=== PATIENT | male | born 1955 | race Caucasian/White ===

== ENCOUNTER 2017-11-16 22:08 | Inpatient (IN) | payer MEDICAID, OTHER ==
[2017-11-16 22:47] LABS: ADD MAN DIFF? NO
[2017-11-16 22:52] LABS: ABNORMAL IP MESSAGE 1; BASOPHILS % 0.2 % (0.0-2.0); HEMATOCRIT 38.4 % (42.0-52.0); HEMOGLOBIN 13.1 g/dl (14.0-18.0); LYMPHOCYTES # 1.3 10^3/ul (0.8-2.9); LYMPHOCYTES % 7.2 % (15.0-51.0); MEAN CORPUSCULAR HEMOGLOBIN 29.1 pg (29.0-33.0); MEAN CORPUSCULAR HGB CONC 34.1 g/dl (32.0-37.0); MEAN CORPUSCULAR VOLUME 85.3 fl (82.0-101.0); MEAN PLATELET VOLUME 10.2 fl (7.4-10.4); MONOCYTE # 1.7 10^3/ul (0.3-0.9); MONOCYTES % 9.5 % (0.0-11.0); NEUTROPHIL # 14.6 10^3/ul (1.6-7.5); NEUTROPHILS % 81.6 % (39.0-77.0); PLATELET COUNT 325 10^3/UL (140-415); POSITIVE DIFF @See below; RED CELL DISTRIBUTION WIDTH 11.4 % (11.5-14.5)
[2017-11-16 22:52] LABS: WHITE BLOOD COUNT 17.9 10^3/ul (4.8-10.8)
[2017-11-16] MEDS: SODIUM CHLORIDE 0.9% 1L BAG IV* (23:08)
[2017-11-16] MEDS: SOD CHLORIDE 0.9% 500 ML IV (23:08)
[2017-11-16 23:11] LABS: INR 1.15; PROTIME 14.9 Sec (11.9-14.9); PT RATIO 1.2
[2017-11-16 23:12] LABS: PARTIAL THROMBOPLASTIN TIME 32.2 Sec (25.0-35.0)
[2017-11-16 23:17] LABS: ALANINE AMINOTRANSFERASE 38 IU/L (13-69); ALBUMIN 3.2 g/dl (3.3-4.9); ALKALINE PHOSPHATASE 154 IU/L (42-121); ANION GAP 17 (8-16); ASPARTATE AMINO TRANSFERASE 25 IU/L (15-46); BILIRUBIN,INDIRECT 0.6 mg/dl (0-1.1); BILIRUBIN,TOTAL 0.6 mg/dl (0.2-1.3); BLOOD UREA NITROGEN 10 mg/dl (7-20); CALCIUM 8.7 mg/dl (8.4-10.2); CARBON DIOXIDE 29 mmol/L (21-31); CHLORIDE 92 mmol/L (97-110); CREATININE 0.61 mg/dl (0.61-1.24); GLUCOSE 315 mg/dl (70-220); POTASSIUM 3.8 mmol/L (3.5-5.1); SODIUM 134 mmol/L (135-144); TOTAL PROTEIN 6.4 g/dl (6.1-8.1)
[2017-11-16 23:19] LABS: LIPASE < 10 U/L (23-300)
[2017-11-16 23:25] LABS: LACTIC ACID 1.5 mmol/L (0.5-2.0)
[2017-11-16 23:28] LABS: TROPONIN-I < 0.010 ng/ml (0.000-0.120)
[2017-11-17] MEDS: PIPER-TAZO 3.375 GM IV (PMX) 100 ML IVPB ×4 (00:59→17:11)
[2017-11-17 01:06] LABS: LACTIC ACID 1.2 mmol/L (0.5-2.0)
[2017-11-17] MEDS ORDERED: COLLAGENASE 5 GM (UD JAR) TOP (02:03)
[2017-11-17] MEDS: VANCOMYCIN 1 GM (PMX) 250 ML IVPB (02:42)
[2017-11-17 04:06] LABS: LACTIC ACID 1.1 mmol/L (0.5-2.0)
[2017-11-17] MEDS ORDERED: PENDING SANTYL ORDER FOR WOUND CARE XX (04:30)
[2017-11-17] MEDS ORDERED: VANCOMYCIN IV PER PHARMACY XX (04:30)
[2017-11-17] MEDS ORDERED: morphine 2 MG INJ IV (04:30)
[2017-11-17] MEDS ORDERED: HYDROCODONE/APAP (5/325) TAB PO (04:30)
[2017-11-17 05:31] LABS: ADD MAN DIFF? NO
[2017-11-17 05:37] LABS: ABNORMAL IP MESSAGE 1; BASOPHILS % 0.2 % (0.0-2.0); HEMATOCRIT 33.3 % (42.0-52.0); HEMOGLOBIN 11.3 g/dl (14.0-18.0); LYMPHOCYTES # 1.1 10^3/ul (0.8-2.9); LYMPHOCYTES % 5.8 % (15.0-51.0); MEAN CORPUSCULAR HEMOGLOBIN 28.6 pg (29.0-33.0); MEAN CORPUSCULAR HGB CONC 33.9 g/dl (32.0-37.0); MEAN CORPUSCULAR VOLUME 84.3 fl (82.0-101.0); MEAN PLATELET VOLUME 10.4 fl (7.4-10.4); MONOCYTE # 1.8 10^3/ul (0.3-0.9); MONOCYTES % 9.4 % (0.0-11.0); NEUTROPHIL # 15.7 10^3/ul (1.6-7.5); NEUTROPHILS % 83.4 % (39.0-77.0); PLATELET COUNT 279 10^3/UL (140-415); POSITIVE DIFF @See below; RED BLOOD COUNT 3.95 10^6/ul (4.70-6.10); RED CELL DISTRIBUTION WIDTH 11.8 % (11.5-14.5)
[2017-11-17 05:37] LABS: WHITE BLOOD COUNT 18.8 10^3/ul (4.8-10.8)
[2017-11-17] MEDS: COLLAGENASE 5 GM (UD JAR) TOP ×2 (06:02→08:37)
[2017-11-17 06:07] LABS: ANION GAP 12 (8-16); BLOOD UREA NITROGEN 9 mg/dl (7-20); CALCIUM 7.9 mg/dl (8.4-10.2); CARBON DIOXIDE 27 mmol/L (21-31); CHLORIDE 100 mmol/L (97-110); CREATININE 0.53 mg/dl (0.61-1.24); GLUCOSE 277 mg/dl (70-220); MAGNESIUM 1.9 mg/dl (1.7-2.5); POTASSIUM 3.3 mmol/L (3.5-5.1); SODIUM 136 mmol/L (135-144)
[2017-11-17] MEDS ORDERED: DEXTROSE 50% 50 ML SYRINGE IV ×2 (07:00)
[2017-11-17] MEDS ORDERED: GLUCAGON 1 MG INJ IM (07:00)
[2017-11-17] MEDS ORDERED: GLUCOSE GEL 15 GRAM TUBE BUCCAL (07:00)
[2017-11-17] MEDS ORDERED: GLUCOSE GEL 15 GRAM TUBE PO ×2 (07:00)
[2017-11-17] MEDS: POTASSIUM CHLORIDE (SR) 20 MEQ TAB PO (08:08)
[2017-11-17] MEDS: INSULIN ASPART [NOVOLOG] 3 ML PEN SC ×7 (08:33→20:55)
[2017-11-17] MEDS: INSULIN GLARGINE [LANtus] 3 ML PEN SC (08:35)
[2017-11-17] MEDS: HEPARIN 5,000 UNIT/0.5 ML VIAL SC ×2 (08:36→20:55)
[2017-11-17 10:00] LABS: CHOL/HDL RATIO 4.5 RATIO; HDL CHOLESTEROL 20 mg/dl (30-78); LDL CHOLESTEROL,CALCULATED 59 mg/dl; TRIGLYCERIDES 60 mg/dl (0-149)
[2017-11-17 10:00] LABS: CHOLESTEROL 91 mg/dl (100-200)
[2017-11-17] MEDS: VANCOMYCIN 1.25 GM in SOD CHLORIDE 0.9% 250 ML IVPB ×2 (10:07→20:55)
[2017-11-17] MEDS: POLYETHYLENE GLYCOL 17 GM PACKET PO ×2 (11:00→20:56)
[2017-11-17] MEDS ORDERED: BISACODYL (EC) 5 MG TAB PO (11:00)
[2017-11-17 12:00] LABS: C-REACTIVE PROTEIN 37.8 mg/dl (0.0-0.9)
[2017-11-17] MEDS ORDERED: LIDOCAINE 1% (MPF) 30 ML INJ INJ (16:30)
[2017-11-17] MEDS: ACETAMINOPHEN 325 MG TAB PO (19:51)
[2017-11-17] MEDS: SODIUM HYPOCHLORITE (1/40) 1 APPLIC BTL IRR (20:53)
[2017-11-18] MEDS: PIPER-TAZO 3.375 GM IV (PMX) 100 ML IVPB ×4 (00:22→18:40)
[2017-11-18] MEDS: ACCU-CHEK XX (00:24)
[2017-11-18 05:33] LABS: ADD MAN DIFF? NO
[2017-11-18 05:37] LABS: BASOPHILS % 0.2 % (0.0-2.0); EOSINOPHILS % 0.1 % (0.0-7.0); HEMATOCRIT 35.8 % (42.0-52.0); HEMOGLOBIN 12.1 g/dl (14.0-18.0); LYMPHOCYTES # 1.5 10^3/ul (0.8-2.9); LYMPHOCYTES % 7.9 % (15.0-51.0); MEAN CORPUSCULAR HEMOGLOBIN 28.8 pg (29.0-33.0); MEAN CORPUSCULAR HGB CONC 33.8 g/dl (32.0-37.0); MEAN CORPUSCULAR VOLUME 85.2 fl (82.0-101.0); MEAN PLATELET VOLUME 10.3 fl (7.4-10.4); MONOCYTE # 1.3 10^3/ul (0.3-0.9); MONOCYTES % 6.9 % (0.0-11.0); NEUTROPHIL # 15.6 10^3/ul (1.6-7.5); NEUTROPHILS % 83.1 % (39.0-77.0); PLATELET COUNT 312 10^3/UL (140-415); RED CELL DISTRIBUTION WIDTH 11.9 % (11.5-14.5)
[2017-11-18 05:37] LABS: WHITE BLOOD COUNT 18.8 10^3/ul (4.8-10.8)
[2017-11-18 05:57] LABS: PHOSPHORUS 3.6 mg/dl (2.5-4.9)
[2017-11-18 05:58] LABS: ANION GAP 16 (8-16); BLOOD UREA NITROGEN 14 mg/dl (7-20); CALCIUM 8.2 mg/dl (8.4-10.2); CARBON DIOXIDE 26 mmol/L (21-31); CHLORIDE 100 mmol/L (97-110); GLUCOSE 152 mg/dl (70-220); POTASSIUM 4.1 mmol/L (3.5-5.1); SODIUM 138 mmol/L (135-144)
[2017-11-18] MEDS: INSULIN GLARGINE [LANtus] 3 ML PEN SC (08:11)
[2017-11-18] MEDS: INSULIN ASPART [NOVOLOG] 3 ML PEN SC ×6 (08:15→21:00)
[2017-11-18] MEDS: SODIUM HYPOCHLORITE (1/40) 1 APPLIC BTL IRR ×2 (08:23→21:57)
[2017-11-18] MEDS: HEPARIN 5,000 UNIT/0.5 ML VIAL SC ×2 (08:23→21:56)
[2017-11-18] MEDS: POLYETHYLENE GLYCOL 17 GM PACKET PO ×2 (08:23→21:57)
[2017-11-18] MEDS: COLLAGENASE 5 GM (UD JAR) TOP (08:23)
[2017-11-18] MEDS: VANCOMYCIN 1.25 GM in SOD CHLORIDE 0.9% 250 ML IVPB ×2 (11:48→22:23)
[2017-11-18] MEDS: SOD CHLORIDE 0.9% 1,000 ML IV (13:19)
[2017-11-18] MEDS ORDERED: PROPOFOL 20 ML (16:22)
[2017-11-18] MEDS ORDERED: ONDANSETRON 4 MG INJ (16:23)
[2017-11-18] MEDS ORDERED: MIDAZOLAM 1 MG/ML 2 ML INJ IV (16:30)
[2017-11-18] MEDS ORDERED: OXYCODONE/ACETAMINOPHEN (5/325) TAB PO ×2 (16:30)
[2017-11-18] MEDS ORDERED: ONDANSETRON 4 MG INJ IV ×2 (16:30→17:30)
[2017-11-18] MEDS ORDERED: HYDROmorphONE 1 MG/5 ML IV SYRINGE IV ×2 (16:30)
[2017-11-18] MEDS ORDERED: ALBUTEROL 0.083% (NEB) 2.5 MG/3 ML AMP HHN (16:30)
[2017-11-18] MEDS ORDERED: IPRATROPIUM (NEB) 0.5 MG/2.5 ML AMP HHN (16:30)
[2017-11-18] MEDS ORDERED: FENTAnyl 50 MCG/ML VIAL IV ×3 (16:30)
[2017-11-18] MEDS ORDERED: MEPERIDINE 25 MG INJ IV (16:30)
[2017-11-18] MEDS ORDERED: EPHEDrine SULFATE 50 MG/5 ML SYG IV (16:30)
[2017-11-18] MEDS ORDERED: DIPHENHYDRAMINE 50 MG INJ IV ×2 (16:30→17:30)
[2017-11-18] MEDS ORDERED: hydrALAzine 20 MG INJ IV (16:30)
[2017-11-18] MEDS ORDERED: TRIMETHOBENZAMIDE 100 MG/ML VIAL IM (16:30)
[2017-11-18] MEDS ORDERED: LABETALOL HCL 20MG INJ IV (16:30)
[2017-11-18] MEDS: LIDOCAINE 1% (MPF) 30 ML INJ (16:42)
[2017-11-18] MEDS: POLYMYXIN/BACITRACIN 1L IRRIG (16:43)
[2017-11-18] MEDS ORDERED: KETOROLAC 30 MG INJ IV (17:30)
[2017-11-18] MEDS: HYDROmorphONE 1 MG/5 ML IV SYRINGE IV (17:36)
[2017-11-18 21:19] LABS: VANCOMYCIN,TROUGH 5.9 ug/ml (10.0-20.0)
[2017-11-19] MEDS: PIPER-TAZO 3.375 GM IV (PMX) 100 ML IVPB ×2 (00:28→05:58)
[2017-11-19] MEDS: ACCU-CHEK XX (02:00)
[2017-11-19 05:51] LABS: ADD MAN DIFF? NO
[2017-11-19 05:55] LABS: WHITE BLOOD COUNT 17.9 10^3/ul (4.8-10.8)
[2017-11-19 05:55] LABS: BASOPHILS % 0.2 % (0.0-2.0); EOSINOPHILS # 0.1 10^3/ul (0.0-0.5); EOSINOPHILS % 0.3 % (0.0-7.0); HEMATOCRIT 34.4 % (42.0-52.0); HEMOGLOBIN 11.6 g/dl (14.0-18.0); LYMPHOCYTES # 1.7 10^3/ul (0.8-2.9); LYMPHOCYTES % 9.5 % (15.0-51.0); MEAN CORPUSCULAR HEMOGLOBIN 28.7 pg (29.0-33.0); MEAN CORPUSCULAR HGB CONC 33.7 g/dl (32.0-37.0); MEAN CORPUSCULAR VOLUME 85.1 fl (82.0-101.0); MEAN PLATELET VOLUME 9.8 fl (7.4-10.4); MONOCYTES % 5.5 % (0.0-11.0); NEUTROPHIL # 14.4 10^3/ul (1.6-7.5); NEUTROPHILS % 80.4 % (39.0-77.0); PLATELET COUNT 339 10^3/UL (140-415); RED BLOOD COUNT 4.04 10^6/ul (4.70-6.10); RED CELL DISTRIBUTION WIDTH 11.9 % (11.5-14.5)
[2017-11-19] MEDS: PANTOPRAZOLE 40 MG INJ IV (05:56)
[2017-11-19] MEDS: HYDROCODONE/APAP (5/325) TAB PO (05:56)
[2017-11-19 06:22] LABS: ANION GAP 10 (8-16)
[2017-11-19 06:35] LABS: PHOSPHORUS 3.5 mg/dl (2.5-4.9)
[2017-11-19] MEDS: VANCOMYCIN 1 GM 250 ML IVPB ×3 (06:48→22:48)
[2017-11-19 07:09] LABS: BLOOD UREA NITROGEN 9 mg/dl (7-20); CALCIUM 7.7 mg/dl (8.4-10.2); CARBON DIOXIDE 28 mmol/L (21-31); CHLORIDE 102 mmol/L (97-110); CREATININE 0.65 mg/dl (0.61-1.24); GLUCOSE 160 mg/dl (70-220); POTASSIUM 3.4 mmol/L (3.5-5.1); SODIUM 137 mmol/L (135-144)
[2017-11-19] MEDS: INSULIN ASPART [NOVOLOG] 3 ML PEN SC ×7 (08:02→21:00)
[2017-11-19] MEDS: INSULIN GLARGINE [LANtus] 3 ML PEN SC (08:04)
[2017-11-19] MEDS: POLYETHYLENE GLYCOL 17 GM PACKET PO ×2 (08:05→21:00)
[2017-11-19] MEDS: SODIUM HYPOCHLORITE (1/40) 1 APPLIC BTL IRR ×2 (08:06→22:54)
[2017-11-19] MEDS: HEPARIN 5,000 UNIT/0.5 ML VIAL SC ×2 (08:08→22:52)
[2017-11-19] MEDS: COLLAGENASE 5 GM (UD JAR) TOP (08:14)
[2017-11-19] MEDS: CEFTRIAXONE 1 GM/50 ML (PMX) 50 ML IVPB (14:49)
[2017-11-19] MEDS: POTASSIUM CHLORIDE (SR) 20 MEQ TAB PO (14:49)
[2017-11-19] MEDS: FLUCONAZOLE 100 MG TAB PO (14:52)
[2017-11-19] MEDS ORDERED: morphine LIQ (10 MG/5 ML) CUP PO (22:00)
[2017-11-20] MEDS: ACCU-CHEK XX (02:00)
[2017-11-20] MEDS: VANCOMYCIN 1 GM 250 ML IVPB ×3 (06:15→15:00)
[2017-11-20] MEDS: PANTOPRAZOLE 40 MG INJ IV (06:15)
[2017-11-20 08:04] LABS: ADD MAN DIFF? NO
[2017-11-20 08:08] LABS: BASOPHILS % 0.3 % (0.0-2.0); EOSINOPHILS # 0.1 10^3/ul (0.0-0.5); EOSINOPHILS % 0.6 % (0.0-7.0); HEMOGLOBIN 12.4 g/dl (14.0-18.0); LYMPHOCYTES # 1.7 10^3/ul (0.8-2.9); LYMPHOCYTES % 11.7 % (15.0-51.0); MEAN CORPUSCULAR HGB CONC 33.5 g/dl (32.0-37.0); MEAN CORPUSCULAR VOLUME 86.4 fl (82.0-101.0); MEAN PLATELET VOLUME 9.9 fl (7.4-10.4); MONOCYTE # 0.8 10^3/ul (0.3-0.9); NEUTROPHIL # 11.1 10^3/ul (1.6-7.5); NEUTROPHILS % 79.1 % (39.0-77.0); PLATELET COUNT 370 10^3/UL (140-415); RED BLOOD COUNT 4.28 10^6/ul (4.70-6.10); RED CELL DISTRIBUTION WIDTH 11.7 % (11.5-14.5)
[2017-11-20 08:08] LABS: WHITE BLOOD COUNT 14.1 10^3/ul (4.8-10.8)
[2017-11-20 08:29] LABS: ANION GAP 15 (8-16); BLOOD UREA NITROGEN 7 mg/dl (7-20); CALCIUM 8.1 mg/dl (8.4-10.2); CARBON DIOXIDE 28 mmol/L (21-31); CHLORIDE 100 mmol/L (97-110); CREATININE 0.68 mg/dl (0.61-1.24); GLUCOSE 134 mg/dl (70-220); POTASSIUM 3.6 mmol/L (3.5-5.1); SODIUM 139 mmol/L (135-144)
[2017-11-20 08:33] LABS: PHOSPHORUS 3.7 mg/dl (2.5-4.9)
[2017-11-20] MEDS: INSULIN ASPART [NOVOLOG] 3 ML PEN SC ×7 (08:36→20:57)
[2017-11-20] MEDS: INSULIN GLARGINE [LANtus] 3 ML PEN SC (08:37)
[2017-11-20] MEDS: FLUCONAZOLE 100 MG TAB PO (09:17)
[2017-11-20] MEDS: POLYETHYLENE GLYCOL 17 GM PACKET PO ×2 (09:17→20:58)
[2017-11-20] MEDS: HEPARIN 5,000 UNIT/0.5 ML VIAL SC ×2 (09:19→21:00)
[2017-11-20] MEDS: SODIUM HYPOCHLORITE (1/40) 1 APPLIC BTL IRR ×2 (09:23→20:55)
[2017-11-20] MEDS: COLLAGENASE 5 GM (UD JAR) TOP (09:23)
[2017-11-20] MEDS: CHOLECALCIFEROL 2,000 UNIT CAP PO (15:00)
[2017-11-20] MEDS: LISINOPRIL 5 MG TAB PO (15:00)
[2017-11-20 15:31] LABS: VANCOMYCIN,TROUGH 8.9 ug/ml (10.0-20.0)
[2017-11-20] MEDS: LEVOFLOXACIN 500 MG TAB PO (17:31)
[2017-11-20] MEDS: VANCOMYCIN 1.5 GM in SOD CHLORIDE 0.9% 250 ML IVPB (21:58)
[2017-11-20] MEDS ORDERED: VANCOMYCIN 1.25 GM in SOD CHLORIDE 0.9% 250 ML IVPB (22:00)
[2017-11-21] MEDS: ACCU-CHEK XX (01:55)
[2017-11-21] MEDS: PANTOPRAZOLE 40 MG INJ IV (05:44)
[2017-11-21] MEDS: VANCOMYCIN 1.5 GM in SOD CHLORIDE 0.9% 250 ML IVPB ×3 (05:44→22:16)
[2017-11-21] MEDS: LEVOFLOXACIN 500 MG TAB PO (05:44)
[2017-11-21 06:30] LABS: ADD MAN DIFF? NO
[2017-11-21 06:40] LABS: WHITE BLOOD COUNT 11.6 10^3/ul (4.8-10.8)
[2017-11-21 06:40] LABS: BASOPHILS % 0.3 % (0.0-2.0); EOSINOPHILS # 0.1 10^3/ul (0.0-0.5); EOSINOPHILS % 0.7 % (0.0-7.0); HEMATOCRIT 36.4 % (42.0-52.0); HEMOGLOBIN 12.2 g/dl (14.0-18.0); LYMPHOCYTES # 1.6 10^3/ul (0.8-2.9); LYMPHOCYTES % 13.9 % (15.0-51.0); MEAN CORPUSCULAR HEMOGLOBIN 28.5 pg (29.0-33.0); MEAN CORPUSCULAR HGB CONC 33.5 g/dl (32.0-37.0); MEAN PLATELET VOLUME 9.5 fl (7.4-10.4); MONOCYTE # 0.7 10^3/ul (0.3-0.9); MONOCYTES % 5.8 % (0.0-11.0); NEUTROPHILS % 77.1 % (39.0-77.0); PLATELET COUNT 360 10^3/UL (140-415); RED BLOOD COUNT 4.28 10^6/ul (4.70-6.10); RED CELL DISTRIBUTION WIDTH 11.9 % (11.5-14.5)
[2017-11-21 07:15] LABS: ANION GAP 13 (8-16); BLOOD UREA NITROGEN 7 mg/dl (7-20); CARBON DIOXIDE 29 mmol/L (21-31); CHLORIDE 101 mmol/L (97-110); CREATININE 0.61 mg/dl (0.61-1.24); GLUCOSE 147 mg/dl (70-220); POTASSIUM 3.4 mmol/L (3.5-5.1); SODIUM 140 mmol/L (135-144)
[2017-11-21 07:28] LABS: PHOSPHORUS 3.9 mg/dl (2.5-4.9)
[2017-11-21] MEDS: INSULIN ASPART [NOVOLOG] 3 ML PEN SC ×7 (08:04→21:00)
[2017-11-21] MEDS: HEPARIN 5,000 UNIT/0.5 ML VIAL SC ×2 (08:05→22:08)
[2017-11-21] MEDS: INSULIN GLARGINE [LANtus] 3 ML PEN SC (08:05)
[2017-11-21] MEDS: FLUCONAZOLE 100 MG TAB PO (08:06)
[2017-11-21] MEDS: CHOLECALCIFEROL 2,000 UNIT CAP PO (08:06)
[2017-11-21] MEDS: SODIUM HYPOCHLORITE (1/40) 1 APPLIC BTL IRR ×2 (08:06→22:10)
[2017-11-21] MEDS: POLYETHYLENE GLYCOL 17 GM PACKET PO ×2 (08:14→21:00)
[2017-11-21] MEDS: LISINOPRIL 5 MG TAB PO (08:45)
[2017-11-21] MEDS: POTASSIUM CHLORIDE (SR) 10 MEQ TAB PO (14:22)
[2017-11-21] MEDS: IOHEXOL 100 ML (15:30)
[2017-11-21] MEDS: metroNIDAZOLE 500 MG/NS (PMX) 100 ML IVPB ×2 (15:30→22:08)
[2017-11-21] MEDS: IOHEXOL 350MG/ML 50 ML BTL (15:31)
[2017-11-21] MEDS: SOD CHLORIDE 0.9% 100 ML (15:31)
[2017-11-21 21:44] LABS: VANCOMYCIN,TROUGH 17.7 ug/ml (10.0-20.0)
[2017-11-22] MEDS: ACCU-CHEK XX (02:00)
[2017-11-22] MEDS: PANTOPRAZOLE 40 MG INJ IV (06:05)
[2017-11-22] MEDS: VANCOMYCIN 1.5 GM in SOD CHLORIDE 0.9% 250 ML IVPB (06:05)
[2017-11-22] MEDS: metroNIDAZOLE 500 MG/NS (PMX) 100 ML IVPB ×3 (06:05→22:08)
[2017-11-22] MEDS: LEVOFLOXACIN 500 MG TAB PO (06:06)
[2017-11-22 06:09] LABS: ADD MAN DIFF? NO
[2017-11-22 06:20] LABS: BASOPHILS % 0.3 % (0.0-2.0); EOSINOPHILS # 0.1 10^3/ul (0.0-0.5); EOSINOPHILS % 0.5 % (0.0-7.0); HEMATOCRIT 37.9 % (42.0-52.0); HEMOGLOBIN 12.8 g/dl (14.0-18.0); LYMPHOCYTES # 1.9 10^3/ul (0.8-2.9); LYMPHOCYTES % 15.5 % (15.0-51.0); MEAN CORPUSCULAR HEMOGLOBIN 29.1 pg (29.0-33.0); MEAN CORPUSCULAR HGB CONC 33.8 g/dl (32.0-37.0); MEAN CORPUSCULAR VOLUME 86.1 fl (82.0-101.0); MEAN PLATELET VOLUME 9.6 fl (7.4-10.4); MONOCYTE # 0.7 10^3/ul (0.3-0.9); MONOCYTES % 5.8 % (0.0-11.0); NEUTROPHIL # 9.1 10^3/ul (1.6-7.5); NEUTROPHILS % 76.1 % (39.0-77.0); PLATELET COUNT 402 10^3/UL (140-415); RED CELL DISTRIBUTION WIDTH 11.7 % (11.5-14.5)
[2017-11-22 06:50] LABS: MAGNESIUM 1.9 mg/dl (1.7-2.5)
[2017-11-22 06:50] LABS: PHOSPHORUS 4.2 mg/dl (2.5-4.9)
[2017-11-22 07:18] LABS: ANION GAP 15 (8-16); BLOOD UREA NITROGEN 9 mg/dl (7-20); CALCIUM 8.3 mg/dl (8.4-10.2); CARBON DIOXIDE 27 mmol/L (21-31); CHLORIDE 103 mmol/L (97-110); CREATININE 0.64 mg/dl (0.61-1.24); GLUCOSE 141 mg/dl (70-220); POTASSIUM 3.6 mmol/L (3.5-5.1); SODIUM 141 mmol/L (135-144)
[2017-11-22] MEDS: INSULIN ASPART [NOVOLOG] 3 ML PEN SC ×7 (08:00→21:00)
[2017-11-22] MEDS: POLYETHYLENE GLYCOL 17 GM PACKET PO ×2 (08:37→21:00)
[2017-11-22] MEDS: FLUCONAZOLE 100 MG TAB PO (08:38)
[2017-11-22] MEDS: LISINOPRIL 5 MG TAB PO (08:38)
[2017-11-22] MEDS: CHOLECALCIFEROL 2,000 UNIT CAP PO (08:38)
[2017-11-22] MEDS: HEPARIN 5,000 UNIT/0.5 ML VIAL SC ×2 (08:39→22:12)
[2017-11-22] MEDS: INSULIN GLARGINE [LANtus] 3 ML PEN SC (08:40)
[2017-11-22] MEDS: ACETAMINOPHEN 325 MG TAB PO (08:41)
[2017-11-22] MEDS: SODIUM HYPOCHLORITE (1/40) 1 APPLIC BTL IRR ×2 (08:46→22:25)
[2017-11-22] MEDS: VANCOMYCIN 1.25 GM in SOD CHLORIDE 0.9% 250 ML IVPB (16:26)
[2017-11-23] MEDS: VANCOMYCIN 1.25 GM in SOD CHLORIDE 0.9% 250 ML IVPB ×3 (01:12→17:07)
[2017-11-23] MEDS: ACCU-CHEK XX (01:23)
[2017-11-23] MEDS: metroNIDAZOLE 500 MG/NS (PMX) 100 ML IVPB ×3 (05:47→20:18)
[2017-11-23] MEDS: LEVOFLOXACIN 500 MG TAB PO (05:47)
[2017-11-23] MEDS: PANTOPRAZOLE 40 MG INJ IV (05:47)
[2017-11-23] MEDS: FLUCONAZOLE 100 MG TAB PO (08:28)
[2017-11-23] MEDS: CHOLECALCIFEROL 2,000 UNIT CAP PO (08:28)
[2017-11-23] MEDS: LISINOPRIL 5 MG TAB PO (08:29)
[2017-11-23] MEDS: INSULIN GLARGINE [LANtus] 3 ML PEN SC (08:31)
[2017-11-23] MEDS: INSULIN ASPART [NOVOLOG] 3 ML PEN SC ×7 (08:32→20:18)
[2017-11-23] MEDS: HEPARIN 5,000 UNIT/0.5 ML VIAL SC ×2 (08:33→20:19)
[2017-11-23] MEDS: POLYETHYLENE GLYCOL 17 GM PACKET PO ×2 (08:37→20:18)
[2017-11-23] MEDS: SODIUM HYPOCHLORITE (1/40) 1 APPLIC BTL IRR ×2 (08:42→20:21)
[2017-11-23] MEDS ORDERED: LISINOPRIL 10 MG TAB PO (09:00)
[2017-11-24 01:02] LABS: VANCOMYCIN,TROUGH 16.5 ug/ml (10.0-20.0)
[2017-11-24] MEDS: ACCU-CHEK XX (01:24)
[2017-11-24] MEDS: VANCOMYCIN 1.25 GM in SOD CHLORIDE 0.9% 250 ML IVPB ×2 (01:26→08:01)
[2017-11-24] MEDS: LEVOFLOXACIN 500 MG TAB PO (05:18)
[2017-11-24] MEDS: PANTOPRAZOLE 40 MG INJ IV (05:18)
[2017-11-24] MEDS: metroNIDAZOLE 500 MG/NS (PMX) 100 ML IVPB ×3 (05:18→21:53)
[2017-11-24 05:46] LABS: ADD MAN DIFF? NO
[2017-11-24 06:11] LABS: WHITE BLOOD COUNT 11.6 10^3/ul (4.8-10.8)
[2017-11-24 06:11] LABS: BASOPHIL # 0.1 10^3/ul (0.0-0.1); BASOPHILS % 0.4 % (0.0-2.0); EOSINOPHILS # 0.1 10^3/ul (0.0-0.5); EOSINOPHILS % 0.4 % (0.0-7.0); HEMATOCRIT 38.8 % (42.0-52.0); HEMOGLOBIN 12.9 g/dl (14.0-18.0); LYMPHOCYTES # 1.7 10^3/ul (0.8-2.9); LYMPHOCYTES % 14.3 % (15.0-51.0); MEAN CORPUSCULAR HEMOGLOBIN 28.9 pg (29.0-33.0); MEAN CORPUSCULAR HGB CONC 33.2 g/dl (32.0-37.0); MEAN PLATELET VOLUME 9.6 fl (7.4-10.4); MONOCYTE # 0.6 10^3/ul (0.3-0.9); MONOCYTES % 5.5 % (0.0-11.0); NEUTROPHILS % 78.1 % (39.0-77.0); PLATELET COUNT 451 10^3/UL (140-415); RED BLOOD COUNT 4.46 10^6/ul (4.70-6.10); RED CELL DISTRIBUTION WIDTH 11.7 % (11.5-14.5)
[2017-11-24 06:22] LABS: ANION GAP 10 (8-16); BLOOD UREA NITROGEN 10 mg/dl (7-20); CALCIUM 8.5 mg/dl (8.4-10.2); CARBON DIOXIDE 27 mmol/L (21-31); CHLORIDE 107 mmol/L (97-110); CREATININE 0.66 mg/dl (0.61-1.24); GLUCOSE 110 mg/dl (70-220); POTASSIUM 4.1 mmol/L (3.5-5.1); SODIUM 140 mmol/L (135-144)
[2017-11-24 06:23] LABS: PHOSPHORUS 3.8 mg/dl (2.5-4.9)
[2017-11-24 06:45] LABS: INR 1.19; PROTIME 15.3 Sec (11.9-14.9); PT RATIO 1.2
[2017-11-24 06:46] LABS: PARTIAL THROMBOPLASTIN TIME 32.9 Sec (25.0-35.0)
[2017-11-24] MEDS: INSULIN ASPART [NOVOLOG] 3 ML PEN SC ×7 (07:58→21:00)
[2017-11-24] MEDS: INSULIN GLARGINE [LANtus] 3 ML PEN SC (07:58)
[2017-11-24] MEDS: HEPARIN 5,000 UNIT/0.5 ML VIAL SC ×2 (07:59→21:00)
[2017-11-24] MEDS: FLUCONAZOLE 100 MG TAB PO (08:58)
[2017-11-24] MEDS: CHOLECALCIFEROL 2,000 UNIT CAP PO (08:58)
[2017-11-24] MEDS: POLYETHYLENE GLYCOL 17 GM PACKET PO ×2 (08:58→21:00)
[2017-11-24] MEDS: LISINOPRIL 10 MG TAB PO (09:01)
[2017-11-24] MEDS: SODIUM HYPOCHLORITE (1/40) 1 APPLIC BTL IRR ×2 (09:08→21:54)
[2017-11-24] MEDS: VANCOMYCIN 1 GM 250 ML IVPB (16:39)
[2017-11-25] MEDS: INSULIN ASPART [NOVOLOG] 3 ML PEN SC ×9 (00:29→20:31)
[2017-11-25] MEDS: DEXTROSE 5%-0.45% NACL 1,000 ML IV ×2 (00:29→20:00)
[2017-11-25] MEDS: VANCOMYCIN 1 GM 250 ML IVPB ×4 (00:31→22:46)
[2017-11-25] MEDS: PANTOPRAZOLE 40 MG INJ IV (05:28)
[2017-11-25] MEDS: LEVOFLOXACIN 500 MG TAB PO (05:28)
[2017-11-25] MEDS: metroNIDAZOLE 500 MG/NS (PMX) 100 ML IVPB ×3 (05:30→21:58)
[2017-11-25 05:56] LABS: ADD MAN DIFF? NO
[2017-11-25 05:59] LABS: WHITE BLOOD COUNT 10.7 10^3/ul (4.8-10.8)
[2017-11-25 06:00] LABS: BASOPHILS % 0.4 % (0.0-2.0); EOSINOPHILS # 0.1 10^3/ul (0.0-0.5); EOSINOPHILS % 0.7 % (0.0-7.0); HEMATOCRIT 38.3 % (42.0-52.0); HEMOGLOBIN 12.5 g/dl (14.0-18.0); LYMPHOCYTES # 1.7 10^3/ul (0.8-2.9); LYMPHOCYTES % 15.5 % (15.0-51.0); MEAN CORPUSCULAR HEMOGLOBIN 28.3 pg (29.0-33.0); MEAN CORPUSCULAR HGB CONC 32.6 g/dl (32.0-37.0); MEAN CORPUSCULAR VOLUME 86.8 fl (82.0-101.0); MEAN PLATELET VOLUME 9.4 fl (7.4-10.4); MONOCYTE # 0.7 10^3/ul (0.3-0.9); MONOCYTES % 6.7 % (0.0-11.0); NEUTROPHIL # 8.1 10^3/ul (1.6-7.5); NEUTROPHILS % 75.5 % (39.0-77.0); PLATELET COUNT 439 10^3/UL (140-415); RED BLOOD COUNT 4.41 10^6/ul (4.70-6.10); RED CELL DISTRIBUTION WIDTH 11.8 % (11.5-14.5)
[2017-11-25 06:46] LABS: MAGNESIUM 1.9 mg/dl (1.7-2.5)
[2017-11-25 06:46] LABS: PHOSPHORUS 3.8 mg/dl (2.5-4.9)
[2017-11-25] MEDS ORDERED: FENTAnyl 50 MCG/ML VIAL (07:00)
[2017-11-25] MEDS ORDERED: GLYCOPYRROLATE 0.4 MG INJ (07:00)
[2017-11-25] MEDS ORDERED: NEOSTIGMINE 3 MG/3 ML SYRINGE (07:00)
[2017-11-25] MEDS ORDERED: MIDAZOLAM 1 MG/ML 2 ML INJ (07:00)
[2017-11-25 07:05] LABS: ANION GAP 14 (8-16); BLOOD UREA NITROGEN 10 mg/dl (7-20); CALCIUM 8.4 mg/dl (8.4-10.2); CARBON DIOXIDE 26 mmol/L (21-31); CHLORIDE 106 mmol/L (97-110); CREATININE 0.73 mg/dl (0.61-1.24); GLUCOSE 141 mg/dl (70-220); SODIUM 142 mmol/L (135-144)
[2017-11-25] MEDS: INSULIN GLARGINE [LANtus] 3 ML PEN SC (08:44)
[2017-11-25] MEDS: LISINOPRIL 10 MG TAB PO (08:45)
[2017-11-25] MEDS: FLUCONAZOLE 100 MG TAB PO (08:45)
[2017-11-25] MEDS: POLYETHYLENE GLYCOL 17 GM PACKET PO ×2 (08:45→20:30)
[2017-11-25] MEDS: CHOLECALCIFEROL 2,000 UNIT CAP PO (08:45)
[2017-11-25] MEDS: SODIUM HYPOCHLORITE (1/40) 1 APPLIC BTL IRR ×2 (08:46→20:30)
[2017-11-25] MEDS: HEPARIN 5,000 UNIT/0.5 ML VIAL SC ×2 (08:46→20:34)
[2017-11-25] MEDS ORDERED: VANCOMYCIN 1 GM INJ (15:50)
[2017-11-25] MEDS ORDERED: VANCOMYCIN 1 GM (PMX) 250 ML (15:52)
[2017-11-25] MEDS ORDERED: PROPOFOL 20 ML (15:58)
[2017-11-25] MEDS ORDERED: LIDOCAINE 100 MG SYRINGE (15:58)
[2017-11-25] MEDS ORDERED: SUCCINYLCHOLINE CHLORIDE 100 MG/5 ML SYG IV (15:58)
[2017-11-25] MEDS ORDERED: ROCURONIUM 50 MG INJ (15:59)
[2017-11-25] MEDS ORDERED: NALOXONE (0.4 MG/ML) INJ IV (16:00)
[2017-11-25] MEDS ORDERED: LIDOCAINE 4% CR (16:00)
[2017-11-25] MEDS: POLYMYXIN/BACITRACIN 1L IRRIG (16:32)
[2017-11-26] MEDS: INSULIN ASPART [NOVOLOG] 3 ML PEN SC ×9 (01:53→21:10)
[2017-11-26] MEDS: metroNIDAZOLE 500 MG/NS (PMX) 100 ML IVPB ×3 (05:29→21:10)
[2017-11-26] MEDS: PANTOPRAZOLE 40 MG INJ IV (05:29)
[2017-11-26] MEDS: LEVOFLOXACIN 500 MG TAB PO ×2 (05:31→05:34)
[2017-11-26] MEDS: VANCOMYCIN 1 GM 250 ML IVPB ×3 (05:32→21:08)
[2017-11-26 05:54] LABS: ADD MAN DIFF? NO
[2017-11-26 06:01] LABS: BASOPHIL # 0.1 10^3/ul (0.0-0.1); BASOPHILS % 0.4 % (0.0-2.0); EOSINOPHILS % 0.2 % (0.0-7.0); HEMATOCRIT 39.1 % (42.0-52.0); HEMOGLOBIN 12.8 g/dl (14.0-18.0); LYMPHOCYTES # 1.1 10^3/ul (0.8-2.9); LYMPHOCYTES % 9.5 % (15.0-51.0); MEAN CORPUSCULAR HEMOGLOBIN 28.7 pg (29.0-33.0); MEAN CORPUSCULAR HGB CONC 32.7 g/dl (32.0-37.0); MEAN CORPUSCULAR VOLUME 87.7 fl (82.0-101.0); MEAN PLATELET VOLUME 9.5 fl (7.4-10.4); MONOCYTE # 0.8 10^3/ul (0.3-0.9); NEUTROPHIL # 9.8 10^3/ul (1.6-7.5); NEUTROPHILS % 81.9 % (39.0-77.0); PLATELET COUNT 455 10^3/UL (140-415); RED BLOOD COUNT 4.46 10^6/ul (4.70-6.10); RED CELL DISTRIBUTION WIDTH 12.1 % (11.5-14.5)
[2017-11-26 06:01] LABS: WHITE BLOOD COUNT 11.9 10^3/ul (4.8-10.8)
[2017-11-26 06:22] LABS: ANION GAP 12 (8-16); BLOOD UREA NITROGEN 11 mg/dl (7-20); CALCIUM 8.5 mg/dl (8.4-10.2); CARBON DIOXIDE 25 mmol/L (21-31); CHLORIDE 110 mmol/L (97-110); CREATININE 0.96 mg/dl (0.61-1.24); GLUCOSE 146 mg/dl (70-220); POTASSIUM 4.3 mmol/L (3.5-5.1); SODIUM 143 mmol/L (135-144)
[2017-11-26 06:52] LABS: MAGNESIUM 1.9 mg/dl (1.7-2.5)
[2017-11-26 06:52] LABS: PHOSPHORUS 4.9 mg/dl (2.5-4.9)
[2017-11-26] MEDS: SODIUM HYPOCHLORITE (1/40) 1 APPLIC BTL IRR ×2 (08:28→21:00)
[2017-11-26] MEDS: POLYETHYLENE GLYCOL 17 GM PACKET PO ×2 (08:28→21:10)
[2017-11-26] MEDS: FLUCONAZOLE 100 MG TAB PO (08:28)
[2017-11-26] MEDS: HEPARIN 5,000 UNIT/0.5 ML VIAL SC ×2 (08:28→21:09)
[2017-11-26] MEDS: CHOLECALCIFEROL 2,000 UNIT CAP PO (08:28)
[2017-11-26] MEDS: LISINOPRIL 10 MG TAB PO (08:29)
[2017-11-26] MEDS: INSULIN GLARGINE [LANtus] 3 ML PEN SC (08:35)
[2017-11-26] MEDS: DEXTROSE 5%-0.45% NACL 1,000 ML IV (11:54)
[2017-11-26] MEDS ORDERED: LIDOCAINE 1% (MDV) 10 ML INJ (12:39)
[2017-11-26] MEDS ORDERED: MIDAZOLAM 1 MG/ML 2 ML INJ (12:39)
[2017-11-26] MEDS ORDERED: IODIXANOL LOCM 100 ML BTL (12:39)
[2017-11-26] MEDS ORDERED: HEPARIN 1000 UNITS/NS (A-LINE) 1,000 ML (12:39)
[2017-11-26] MEDS ORDERED: FENTAnyl 50 MCG/ML VIAL (12:39)
[2017-11-26] MEDS ORDERED: HEPARIN 1000 UNITS/ML 10 ML INJ (12:57)
[2017-11-26] MEDS: CLOPIDOGREL 75 MG TAB PO (14:17)
[2017-11-26] MEDS: ASPIRIN 81 MG TAB NGT (14:17)
[2017-11-27] MEDS: ACCU-CHEK XX ×2 (02:00→22:56)
[2017-11-27] MEDS: PANTOPRAZOLE 40 MG INJ IV (05:16)
[2017-11-27] MEDS: metroNIDAZOLE 500 MG/NS (PMX) 100 ML IVPB (05:17)
[2017-11-27] MEDS: LEVOFLOXACIN 500 MG TAB PO (05:17)
[2017-11-27 06:43] LABS: VANCOMYCIN,TROUGH 16.7 ug/ml (10.0-20.0)
[2017-11-27] MEDS: VANCOMYCIN 1 GM 250 ML IVPB (06:51)
[2017-11-27] MEDS: INSULIN ASPART [NOVOLOG] 3 ML PEN SC ×7 (08:00→20:27)
[2017-11-27] MEDS: INSULIN GLARGINE [LANtus] 3 ML PEN SC (08:44)
[2017-11-27] MEDS: HEPARIN 5,000 UNIT/0.5 ML VIAL SC ×2 (08:45→20:27)
[2017-11-27] MEDS: CHOLECALCIFEROL 2,000 UNIT CAP PO (08:45)
[2017-11-27] MEDS: LISINOPRIL 10 MG TAB PO (08:45)
[2017-11-27] MEDS: ASPIRIN 81 MG TAB NGT (08:45)
[2017-11-27] MEDS: POLYETHYLENE GLYCOL 17 GM PACKET PO ×2 (08:45→20:27)
[2017-11-27] MEDS: CLOPIDOGREL 75 MG TAB PO (08:45)
[2017-11-27] MEDS: FLUCONAZOLE 100 MG TAB PO (08:45)
[2017-11-27] MEDS: SODIUM HYPOCHLORITE (1/40) 1 APPLIC BTL IRR ×2 (08:46→20:27)
[2017-11-27] MEDS: DEXTROSE 5%-0.45% NACL 1,000 ML IV (12:00)
[2017-11-27] MEDS: metroNIDAZOLE 500 MG TAB PO ×2 (15:55→21:13)
[2017-11-27] MEDS: VANCOMYCIN 750 MG in SOD CHLORIDE 0.9% 150 ML IVPB ×2 (16:26→22:52)
[2017-11-27] MEDS: LIDOCAINE 1% (MPF) 5 ML VIAL SC (16:50)
[2017-11-27] MEDS: SOD CHLORIDE 0.9% 100 ML (17:00)
[2017-11-28 05:39] LABS: ADD MAN DIFF? NO
[2017-11-28 05:48] LABS: BASOPHILS % 0.5 % (0.0-2.0); EOSINOPHILS % 0.4 % (0.0-7.0); HEMATOCRIT 34.7 % (42.0-52.0); HEMOGLOBIN 11.5 g/dl (14.0-18.0); LYMPHOCYTES # 1.5 10^3/ul (0.8-2.9); LYMPHOCYTES % 18.5 % (15.0-51.0); MEAN CORPUSCULAR HEMOGLOBIN 28.8 pg (29.0-33.0); MEAN CORPUSCULAR HGB CONC 33.1 g/dl (32.0-37.0); MEAN CORPUSCULAR VOLUME 86.8 fl (82.0-101.0); MEAN PLATELET VOLUME 9.5 fl (7.4-10.4); MONOCYTE # 0.6 10^3/ul (0.3-0.9); MONOCYTES % 7.5 % (0.0-11.0); NEUTROPHIL # 5.7 10^3/ul (1.6-7.5); NEUTROPHILS % 72.3 % (39.0-77.0); PLATELET COUNT 409 10^3/UL (140-415); RED CELL DISTRIBUTION WIDTH 11.7 % (11.5-14.5)
[2017-11-28 05:48] LABS: WHITE BLOOD COUNT 7.8 10^3/ul (4.8-10.8)
[2017-11-28 05:58] LABS: ANION GAP 10 (8-16); BLOOD UREA NITROGEN 10 mg/dl (7-20); CALCIUM 8.4 mg/dl (8.4-10.2); CARBON DIOXIDE 26 mmol/L (21-31); CHLORIDE 107 mmol/L (97-110); CREATININE 0.79 mg/dl (0.61-1.24); GLUCOSE 113 mg/dl (70-220); MAGNESIUM 1.8 mg/dl (1.7-2.5); POTASSIUM 3.4 mmol/L (3.5-5.1); SODIUM 140 mmol/L (135-144)
[2017-11-28] MEDS: VANCOMYCIN 750 MG in SOD CHLORIDE 0.9% 150 ML IVPB ×3 (06:12→23:31)
[2017-11-28] MEDS: PANTOPRAZOLE 40 MG INJ IV (06:12)
[2017-11-28] MEDS: LEVOFLOXACIN 500 MG TAB PO (06:12)
[2017-11-28] MEDS: metroNIDAZOLE 500 MG TAB PO ×3 (06:12→21:13)
[2017-11-28] MEDS: INSULIN ASPART [NOVOLOG] 3 ML PEN SC ×7 (07:35→21:00)
[2017-11-28] MEDS: DEXTROSE 5%-0.45% NACL 1,000 ML IV (08:00)
[2017-11-28] MEDS: INSULIN GLARGINE [LANtus] 3 ML PEN SC (08:36)
[2017-11-28] MEDS: HEPARIN 5,000 UNIT/0.5 ML VIAL SC ×2 (08:37→21:13)
[2017-11-28] MEDS: LISINOPRIL 10 MG TAB PO (08:38)
[2017-11-28] MEDS: FLUCONAZOLE 100 MG TAB PO (08:38)
[2017-11-28] MEDS: CLOPIDOGREL 75 MG TAB PO (08:38)
[2017-11-28] MEDS: CHOLECALCIFEROL 2,000 UNIT CAP PO (08:38)
[2017-11-28] MEDS: ASPIRIN 81 MG TAB NGT (08:38)
[2017-11-28] MEDS: POLYETHYLENE GLYCOL 17 GM PACKET PO ×2 (08:50→21:13)
[2017-11-28] MEDS: SODIUM HYPOCHLORITE (1/40) 1 APPLIC BTL IRR ×2 (09:20→21:00)
[2017-11-29] MEDS: ACCU-CHEK XX ×2 (02:00→22:10)
[2017-11-29] MEDS: DEXTROSE 5%-0.45% NACL 1,000 ML IV (02:32)
[2017-11-29 05:33] LABS: ADD MAN DIFF? NO
[2017-11-29 05:48] LABS: BASOPHILS % 0.5 % (0.0-2.0); EOSINOPHILS % 0.4 % (0.0-7.0); HEMATOCRIT 34.9 % (42.0-52.0); HEMOGLOBIN 11.7 g/dl (14.0-18.0); LYMPHOCYTES # 1.5 10^3/ul (0.8-2.9); LYMPHOCYTES % 18.6 % (15.0-51.0); MEAN CORPUSCULAR HEMOGLOBIN 28.8 pg (29.0-33.0); MEAN CORPUSCULAR HGB CONC 33.5 g/dl (32.0-37.0); MEAN PLATELET VOLUME 9.5 fl (7.4-10.4); MONOCYTE # 0.6 10^3/ul (0.3-0.9); MONOCYTES % 7.3 % (0.0-11.0); NEUTROPHIL # 5.8 10^3/ul (1.6-7.5); NEUTROPHILS % 72.7 % (39.0-77.0); PLATELET COUNT 421 10^3/UL (140-415); RED BLOOD COUNT 4.06 10^6/ul (4.70-6.10); RED CELL DISTRIBUTION WIDTH 11.8 % (11.5-14.5)
[2017-11-29] MEDS: metroNIDAZOLE 500 MG TAB PO ×3 (05:55→21:00)
[2017-11-29] MEDS: PANTOPRAZOLE 40 MG INJ IV (05:55)
[2017-11-29] MEDS: LEVOFLOXACIN 500 MG TAB PO (05:55)
[2017-11-29] MEDS: VANCOMYCIN 750 MG in SOD CHLORIDE 0.9% 150 ML IVPB ×3 (06:20→22:31)
[2017-11-29 06:33] LABS: ANION GAP 10 (8-16); BLOOD UREA NITROGEN 9 mg/dl (7-20); CALCIUM 8.4 mg/dl (8.4-10.2); CARBON DIOXIDE 26 mmol/L (21-31); CHLORIDE 105 mmol/L (97-110); CREATININE 0.75 mg/dl (0.61-1.24); GLUCOSE 117 mg/dl (70-220); POTASSIUM 3.4 mmol/L (3.5-5.1); SODIUM 138 mmol/L (135-144)
[2017-11-29] MEDS: INSULIN ASPART [NOVOLOG] 3 ML PEN SC ×6 (08:00→20:55)
[2017-11-29] MEDS: INSULIN GLARGINE [LANtus] 3 ML PEN SC (08:00)
[2017-11-29] MEDS: POLYETHYLENE GLYCOL 17 GM PACKET PO ×2 (09:00→21:00)
[2017-11-29] MEDS: SODIUM HYPOCHLORITE (1/40) 1 APPLIC BTL IRR ×2 (09:08→20:55)
[2017-11-29] MEDS: CHOLECALCIFEROL 2,000 UNIT CAP PO (09:08)
[2017-11-29] MEDS: HEPARIN 5,000 UNIT/0.5 ML VIAL SC ×2 (09:08→20:56)
[2017-11-29] MEDS: CLOPIDOGREL 75 MG TAB PO (09:09)
[2017-11-29] MEDS: FLUCONAZOLE 100 MG TAB PO (09:09)
[2017-11-29] MEDS: ASPIRIN 81 MG TAB NGT (09:09)
[2017-11-29] MEDS: LISINOPRIL 10 MG TAB PO (09:09)
[2017-11-29] MEDS: POTASSIUM CHLORIDE (SR) 20 MEQ TAB PO (14:16)
[2017-11-29] MEDS: ERGOCALCIFEROL 50,000 UNIT CAP PO (14:30)
[2017-11-29] MEDS: LINAGLIPTIN 5 MG TABLET PO (14:30)
[2017-11-29 14:46] LABS: IRON 29 ug/dl (35-150)
[2017-11-29 14:55] LABS: % IRON SATURATION 15 % SAT (22-52); TOTAL IRON BINDING CAPACITY 188 ug/dl (241-421)
[2017-11-29 15:36] LABS: HEPATITIS B SURFACE ANTIGEN NEGATIVE (NEGATIVE)
[2017-11-29 15:36] LABS: THYROID STIMULATING HORMONE 0.628 MIU/L (0.465-4.680)
[2017-11-29 15:53] LABS: HEPATITIS C VIRAL ANTIBODY NEGATIVE (NEGATIVE)
[2017-11-29] MEDS: metFORMIN 500 MG TAB PO (17:27)
[2017-11-29] MEDS: CALCITRIOL 1 MCG INJ IV (17:27)
[2017-11-29] MEDS: REPAGLINIDE 1 MG TAB PO (17:27)
[2017-11-29] MEDS: LACTATED RINGER'S 1,000 ML IV (17:36)
[2017-11-30 05:07] LABS: ADD MAN DIFF? NO
[2017-11-30 05:27] LABS: BASOPHIL # 0.1 10^3/ul (0.0-0.1); BASOPHILS % 0.6 % (0.0-2.0); EOSINOPHILS # 0.1 10^3/ul (0.0-0.5); EOSINOPHILS % 0.6 % (0.0-7.0); HEMOGLOBIN 11.6 g/dl (14.0-18.0); LYMPHOCYTES # 1.5 10^3/ul (0.8-2.9); LYMPHOCYTES % 18.1 % (15.0-51.0); MEAN CORPUSCULAR HEMOGLOBIN 28.5 pg (29.0-33.0); MEAN CORPUSCULAR HGB CONC 33.1 g/dl (32.0-37.0); MEAN PLATELET VOLUME 9.7 fl (7.4-10.4); MONOCYTE # 0.6 10^3/ul (0.3-0.9); MONOCYTES % 7.5 % (0.0-11.0); NEUTROPHIL # 6.1 10^3/ul (1.6-7.5); NEUTROPHILS % 72.8 % (39.0-77.0); PLATELET COUNT 423 10^3/UL (140-415); RED BLOOD COUNT 4.07 10^6/ul (4.70-6.10); RED CELL DISTRIBUTION WIDTH 11.9 % (11.5-14.5)
[2017-11-30 05:27] LABS: WHITE BLOOD COUNT 8.4 10^3/ul (4.8-10.8)
[2017-11-30 06:01] LABS: ANION GAP 9 (8-16); BLOOD UREA NITROGEN 7 mg/dl (7-20); CALCIUM 8.4 mg/dl (8.4-10.2); CARBON DIOXIDE 28 mmol/L (21-31); CHLORIDE 107 mmol/L (97-110); CREATININE 0.73 mg/dl (0.61-1.24); GLUCOSE 94 mg/dl (70-220); POTASSIUM 3.5 mmol/L (3.5-5.1); SODIUM 140 mmol/L (135-144)
[2017-11-30] MEDS: LEVOFLOXACIN 500 MG TAB PO (06:07)
[2017-11-30] MEDS: metroNIDAZOLE 500 MG TAB PO ×3 (06:07→22:03)
[2017-11-30] MEDS: PANTOPRAZOLE 40 MG INJ IV (06:07)
[2017-11-30] MEDS: VANCOMYCIN 750 MG in SOD CHLORIDE 0.9% 150 ML IVPB ×3 (06:07→22:04)
[2017-11-30] MEDS: INSULIN ASPART [NOVOLOG] 3 ML PEN SC ×4 (08:00→20:14)
[2017-11-30] MEDS: SODIUM HYPOCHLORITE (1/40) 1 APPLIC BTL IRR ×2 (08:45→20:14)
[2017-11-30] MEDS: REPAGLINIDE 1 MG TAB PO ×3 (09:08→17:26)
[2017-11-30] MEDS: CHOLECALCIFEROL 2,000 UNIT CAP PO (09:09)
[2017-11-30] MEDS: FLUCONAZOLE 100 MG TAB PO (09:09)
[2017-11-30] MEDS: POLYETHYLENE GLYCOL 17 GM PACKET PO ×2 (09:09→20:14)
[2017-11-30] MEDS: LINAGLIPTIN 5 MG TABLET PO (09:09)
[2017-11-30] MEDS: CLOPIDOGREL 75 MG TAB PO (09:09)
[2017-11-30] MEDS: metFORMIN 500 MG TAB PO ×2 (09:09→17:26)
[2017-11-30] MEDS: ASPIRIN 81 MG TAB NGT (09:09)
[2017-11-30] MEDS: LISINOPRIL 10 MG TAB PO (09:11)
[2017-11-30] MEDS: HEPARIN 5,000 UNIT/0.5 ML VIAL SC ×2 (09:18→20:13)
[2017-11-30] MEDS: INSULIN GLARGINE [LANtus] 3 ML PEN SC (09:18)
[2017-11-30] MEDS: LACTATED RINGER'S 1,000 ML IV (12:30)
[2017-11-30] MEDS: ACCU-CHEK XX (20:44)
[2017-12-01] MEDS: LEVOFLOXACIN 500 MG TAB PO (06:04)
[2017-12-01] MEDS: VANCOMYCIN 750 MG in SOD CHLORIDE 0.9% 150 ML IVPB ×2 (06:04→15:26)
[2017-12-01] MEDS: LACTATED RINGER'S 1,000 ML IV (06:05)
[2017-12-01] MEDS: metroNIDAZOLE 500 MG TAB PO ×3 (06:05→21:23)
[2017-12-01] MEDS: PANTOPRAZOLE 40 MG INJ IV (06:05)
[2017-12-01] MEDS: INSULIN ASPART [NOVOLOG] 3 ML PEN SC ×4 (07:55→21:00)
[2017-12-01] MEDS: SODIUM HYPOCHLORITE (1/40) 1 APPLIC BTL IRR ×2 (07:55→21:25)
[2017-12-01] MEDS ORDERED: INSULIN GLARGINE [LANTus] (100 UNITS/ML) SYG SC (08:00)
[2017-12-01] MEDS: LISINOPRIL 20 MG TAB PO (08:17)
[2017-12-01] MEDS: CHOLECALCIFEROL 2,000 UNIT CAP PO (08:19)
[2017-12-01] MEDS: HEPARIN 5,000 UNIT/0.5 ML VIAL SC ×2 (08:19→21:22)
[2017-12-01] MEDS: ASPIRIN 81 MG TAB NGT (08:19)
[2017-12-01] MEDS: LINAGLIPTIN 5 MG TABLET PO (08:19)
[2017-12-01] MEDS: INSULIN GLARGINE [LANTus] (100 UNITS/ML) SYG SC (08:19)
[2017-12-01] MEDS: CLOPIDOGREL 75 MG TAB PO (08:20)
[2017-12-01] MEDS: REPAGLINIDE 1 MG TAB PO ×3 (08:20→17:22)
[2017-12-01] MEDS: FLUCONAZOLE 100 MG TAB PO (08:20)
[2017-12-01] MEDS: metFORMIN 500 MG TAB PO ×2 (08:20→17:22)
[2017-12-01] MEDS: POLYETHYLENE GLYCOL 17 GM PACKET PO ×2 (08:21→21:00)
[2017-12-02] MEDS: VANCOMYCIN 750 MG in SOD CHLORIDE 0.9% 150 ML IVPB ×4 (00:05→22:39)
[2017-12-02] MEDS: ACCU-CHEK XX (02:00)
[2017-12-02] MEDS: PANTOPRAZOLE 40 MG INJ IV (06:08)
[2017-12-02] MEDS: LEVOFLOXACIN 500 MG TAB PO (06:08)
[2017-12-02] MEDS: metroNIDAZOLE 500 MG TAB PO ×3 (06:08→22:39)
[2017-12-02] MEDS: LACTATED RINGER'S 1,000 ML IV (06:08)
[2017-12-02 06:40] LABS: ADD MAN DIFF? NO
[2017-12-02 06:48] LABS: BASOPHILS % 0.5 % (0.0-2.0); EOSINOPHILS # 0.1 10^3/ul (0.0-0.5); EOSINOPHILS % 1.3 % (0.0-7.0); HEMATOCRIT 35.6 % (42.0-52.0); HEMOGLOBIN 11.8 g/dl (14.0-18.0); LYMPHOCYTES # 1.4 10^3/ul (0.8-2.9); LYMPHOCYTES % 18.2 % (15.0-51.0); MEAN CORPUSCULAR HEMOGLOBIN 29.1 pg (29.0-33.0); MEAN CORPUSCULAR HGB CONC 33.1 g/dl (32.0-37.0); MEAN CORPUSCULAR VOLUME 87.7 fl (82.0-101.0); MEAN PLATELET VOLUME 9.9 fl (7.4-10.4); MONOCYTE # 0.7 10^3/ul (0.3-0.9); MONOCYTES % 8.7 % (0.0-11.0); NEUTROPHIL # 5.3 10^3/ul (1.6-7.5); NEUTROPHILS % 70.6 % (39.0-77.0); PLATELET COUNT 350 10^3/UL (140-415); RED BLOOD COUNT 4.06 10^6/ul (4.70-6.10)
[2017-12-02 06:48] LABS: WHITE BLOOD COUNT 7.6 10^3/ul (4.8-10.8)
[2017-12-02 07:15] LABS: ANION GAP 10 (8-16); BLOOD UREA NITROGEN 7 mg/dl (7-20); CALCIUM 8.6 mg/dl (8.4-10.2); CARBON DIOXIDE 26 mmol/L (21-31); CHLORIDE 106 mmol/L (97-110); CREATININE 0.76 mg/dl (0.61-1.24); GLUCOSE 84 mg/dl (70-220); POTASSIUM 3.6 mmol/L (3.5-5.1); SODIUM 138 mmol/L (135-144)
[2017-12-02 07:29] LABS: MAGNESIUM 1.6 mg/dl (1.7-2.5)
[2017-12-02 07:29] LABS: PHOSPHORUS 3.7 mg/dl (2.5-4.9)
[2017-12-02] MEDS: INSULIN ASPART [NOVOLOG] 3 ML PEN SC ×4 (08:00→20:27)
[2017-12-02] MEDS: POLYETHYLENE GLYCOL 17 GM PACKET PO ×2 (08:08→20:27)
[2017-12-02] MEDS: SODIUM HYPOCHLORITE (1/40) 1 APPLIC BTL IRR ×2 (08:08→20:27)
[2017-12-02] MEDS: metFORMIN 500 MG TAB PO ×2 (08:11→17:28)
[2017-12-02] MEDS: HEPARIN 5,000 UNIT/0.5 ML VIAL SC ×2 (08:11→20:26)
[2017-12-02] MEDS: CLOPIDOGREL 75 MG TAB PO (08:12)
[2017-12-02] MEDS: LINAGLIPTIN 5 MG TABLET PO (08:12)
[2017-12-02] MEDS: REPAGLINIDE 1 MG TAB PO ×3 (08:12→17:28)
[2017-12-02] MEDS: FLUCONAZOLE 100 MG TAB PO (08:12)
[2017-12-02] MEDS: ASPIRIN 81 MG TAB NGT (08:12)
[2017-12-02] MEDS: LISINOPRIL 20 MG TAB PO (08:12)
[2017-12-02] MEDS: CHOLECALCIFEROL 2,000 UNIT CAP PO (08:13)
[2017-12-02] MEDS: INSULIN GLARGINE [LANTus] (100 UNITS/ML) SYG SC (08:13)
[2017-12-02] MEDS: MAGNESIUM SULFATE 2 GM/50 ML 50 ML IVPB (17:28)
[2017-12-03] MEDS: LACTATED RINGER'S 1,000 ML IV ×2 (00:30→15:23)
[2017-12-03] MEDS: ACCU-CHEK XX ×2 (02:00→22:00)
[2017-12-03] MEDS: PANTOPRAZOLE 40 MG INJ IV (05:44)
[2017-12-03] MEDS: LEVOFLOXACIN 500 MG TAB PO (05:44)
[2017-12-03] MEDS: metroNIDAZOLE 500 MG TAB PO ×3 (05:44→21:59)
[2017-12-03] MEDS: VANCOMYCIN 750 MG in SOD CHLORIDE 0.9% 150 ML IVPB ×3 (06:46→22:00)
[2017-12-03] MEDS: INSULIN ASPART [NOVOLOG] 3 ML PEN SC ×4 (08:00→20:53)
[2017-12-03] MEDS: LINAGLIPTIN 5 MG TABLET PO (08:50)
[2017-12-03] MEDS: CHOLECALCIFEROL 2,000 UNIT CAP PO (08:50)
[2017-12-03] MEDS: ASPIRIN 81 MG TAB NGT ×2 (08:50→08:59)
[2017-12-03] MEDS: metFORMIN 500 MG TAB PO ×2 (08:51→17:34)
[2017-12-03] MEDS: REPAGLINIDE 1 MG TAB PO ×3 (08:51→17:34)
[2017-12-03] MEDS: FLUCONAZOLE 100 MG TAB PO (08:51)
[2017-12-03] MEDS: CLOPIDOGREL 75 MG TAB PO (08:51)
[2017-12-03] MEDS: POLYETHYLENE GLYCOL 17 GM PACKET PO ×2 (08:51→20:53)
[2017-12-03] MEDS: HEPARIN 5,000 UNIT/0.5 ML VIAL SC ×2 (08:52→20:53)
[2017-12-03] MEDS: INSULIN GLARGINE [LANTus] (100 UNITS/ML) SYG SC (08:53)
[2017-12-03] MEDS: LISINOPRIL 20 MG TAB PO (08:54)
[2017-12-03] MEDS: SODIUM HYPOCHLORITE (1/40) 1 APPLIC BTL IRR ×2 (08:54→20:53)
[2017-12-04] MEDS: PANTOPRAZOLE 40 MG INJ IV (06:42)
[2017-12-04] MEDS: VANCOMYCIN 750 MG in SOD CHLORIDE 0.9% 150 ML IVPB ×3 (06:42→22:12)
[2017-12-04] MEDS: metroNIDAZOLE 500 MG TAB PO ×3 (06:42→22:12)
[2017-12-04] MEDS: LEVOFLOXACIN 500 MG TAB PO (06:42)
[2017-12-04] MEDS: INSULIN ASPART [NOVOLOG] 3 ML PEN SC ×4 (07:59→20:35)
[2017-12-04] MEDS: SODIUM HYPOCHLORITE (1/40) 1 APPLIC BTL IRR ×2 (08:02→20:34)
[2017-12-04] MEDS: FLUCONAZOLE 100 MG TAB PO (08:20)
[2017-12-04] MEDS: LINAGLIPTIN 5 MG TABLET PO (08:20)
[2017-12-04] MEDS: REPAGLINIDE 1 MG TAB PO ×3 (08:20→17:33)
[2017-12-04] MEDS: metFORMIN 500 MG TAB PO ×2 (08:21→17:33)
[2017-12-04] MEDS: CLOPIDOGREL 75 MG TAB PO (08:21)
[2017-12-04] MEDS: CHOLECALCIFEROL 2,000 UNIT CAP PO (08:21)
[2017-12-04] MEDS: LISINOPRIL 20 MG TAB PO (08:23)
[2017-12-04] MEDS: HEPARIN 5,000 UNIT/0.5 ML VIAL SC ×2 (08:24→20:34)
[2017-12-04] MEDS: INSULIN GLARGINE [LANTus] (100 UNITS/ML) SYG SC (08:25)
[2017-12-04] MEDS: POLYETHYLENE GLYCOL 17 GM PACKET PO ×2 (08:29→20:34)
[2017-12-04] MEDS: ASPIRIN 81 MG TAB NGT (08:29)
[2017-12-04] MEDS: LACTATED RINGER'S 1,000 ML IV ×2 (16:30→22:12)
[2017-12-04] MEDS: ACCU-CHEK XX (23:00)
[2017-12-05] MEDS: metroNIDAZOLE 500 MG TAB PO ×3 (05:46→21:23)
[2017-12-05] MEDS: LEVOFLOXACIN 500 MG TAB PO (05:47)
[2017-12-05] MEDS: PANTOPRAZOLE 40 MG INJ IV (05:47)
[2017-12-05] MEDS: VANCOMYCIN 750 MG in SOD CHLORIDE 0.9% 150 ML IVPB ×3 (06:35→22:22)
[2017-12-05 06:57] LABS: BLOOD UREA NITROGEN 7 mg/dl (7-20); VANCOMYCIN,TROUGH 16.4 ug/ml (10.0-20.0)
[2017-12-05 06:57] LABS: CREATININE 0.77 mg/dl (0.61-1.24)
[2017-12-05] MEDS: INSULIN ASPART [NOVOLOG] 3 ML PEN SC ×4 (07:42→21:00)
[2017-12-05] MEDS: metFORMIN 500 MG TAB PO ×2 (07:43→17:34)
[2017-12-05] MEDS: REPAGLINIDE 1 MG TAB PO ×3 (07:43→17:34)
[2017-12-05] MEDS: INSULIN GLARGINE [LANTus] (100 UNITS/ML) SYG SC (08:10)
[2017-12-05] MEDS: CLOPIDOGREL 75 MG TAB PO (08:32)
[2017-12-05] MEDS: FLUCONAZOLE 100 MG TAB PO (08:32)
[2017-12-05] MEDS: LISINOPRIL 20 MG TAB PO (08:32)
[2017-12-05] MEDS: LINAGLIPTIN 5 MG TABLET PO (08:32)
[2017-12-05] MEDS: CHOLECALCIFEROL 2,000 UNIT CAP PO (08:32)
[2017-12-05] MEDS: POLYETHYLENE GLYCOL 17 GM PACKET PO ×2 (08:36→21:15)
[2017-12-05] MEDS: ASPIRIN 81 MG TAB NGT (08:36)
[2017-12-05] MEDS: SODIUM HYPOCHLORITE (1/40) 1 APPLIC BTL IRR ×2 (08:36→21:00)
[2017-12-05] MEDS: HEPARIN 5,000 UNIT/0.5 ML VIAL SC ×3 (08:36→21:18)
[2017-12-06] MEDS: ACCU-CHEK XX (02:11)
[2017-12-06] MEDS: PANTOPRAZOLE 40 MG INJ IV (05:10)
[2017-12-06] MEDS: LEVOFLOXACIN 500 MG TAB PO (05:10)
[2017-12-06] MEDS: VANCOMYCIN 750 MG in SOD CHLORIDE 0.9% 150 ML IVPB ×3 (05:10→22:06)
[2017-12-06] MEDS: metroNIDAZOLE 500 MG TAB PO ×3 (05:10→22:02)
[2017-12-06] MEDS: LACTATED RINGER'S 1,000 ML IV (05:12)
[2017-12-06] MEDS: INSULIN ASPART [NOVOLOG] 3 ML PEN SC ×4 (08:00→21:00)
[2017-12-06] MEDS: HEPARIN 5,000 UNIT/0.5 ML VIAL SC ×2 (08:33→20:46)
[2017-12-06] MEDS: POLYETHYLENE GLYCOL 17 GM PACKET PO ×2 (08:34→20:45)
[2017-12-06] MEDS: INSULIN GLARGINE [LANTus] (100 UNITS/ML) SYG SC (08:34)
[2017-12-06] MEDS: REPAGLINIDE 1 MG TAB PO ×3 (08:34→17:40)
[2017-12-06] MEDS: FLUCONAZOLE 100 MG TAB PO (08:35)
[2017-12-06] MEDS: metFORMIN 500 MG TAB PO ×2 (08:35→17:40)
[2017-12-06] MEDS: CHOLECALCIFEROL 2,000 UNIT CAP PO (08:35)
[2017-12-06] MEDS: ASPIRIN 81 MG TAB NGT ×2 (08:35→08:45)
[2017-12-06] MEDS: CLOPIDOGREL 75 MG TAB PO (08:35)
[2017-12-06] MEDS: LINAGLIPTIN 5 MG TABLET PO (08:35)
[2017-12-06] MEDS: LISINOPRIL 20 MG TAB PO (08:35)
[2017-12-06] MEDS: SODIUM HYPOCHLORITE (1/40) 1 APPLIC BTL IRR ×2 (08:36→21:00)
[2017-12-07] MEDS: ACCU-CHEK XX (01:55)
[2017-12-07] MEDS: LACTATED RINGER'S 1,000 ML IV (04:50)
[2017-12-07] MEDS: PANTOPRAZOLE 40 MG INJ IV (04:50)
[2017-12-07] MEDS: metroNIDAZOLE 500 MG TAB PO ×3 (04:50→22:01)
[2017-12-07] MEDS: LEVOFLOXACIN 500 MG TAB PO (04:50)
[2017-12-07] MEDS: VANCOMYCIN 750 MG in SOD CHLORIDE 0.9% 150 ML IVPB ×3 (04:51→23:01)
[2017-12-07] MEDS: metFORMIN 500 MG TAB PO ×2 (07:52→17:32)
[2017-12-07] MEDS: REPAGLINIDE 1 MG TAB PO ×3 (07:52→17:05)
[2017-12-07] MEDS: INSULIN ASPART [NOVOLOG] 3 ML PEN SC ×4 (08:00→21:00)
[2017-12-07] MEDS: INSULIN GLARGINE [LANTus] (100 UNITS/ML) SYG SC (08:05)
[2017-12-07] MEDS: ASPIRIN 81 MG TAB NGT (09:00)
[2017-12-07] MEDS: POLYETHYLENE GLYCOL 17 GM PACKET PO ×2 (09:00→21:00)
[2017-12-07] MEDS: CHOLECALCIFEROL 2,000 UNIT CAP PO (09:39)
[2017-12-07] MEDS: LINAGLIPTIN 5 MG TABLET PO (09:39)
[2017-12-07] MEDS: CLOPIDOGREL 75 MG TAB PO (09:39)
[2017-12-07] MEDS: LISINOPRIL 20 MG TAB PO (09:41)
[2017-12-07] MEDS: HEPARIN 5,000 UNIT/0.5 ML VIAL SC ×2 (09:51→21:13)
[2017-12-07] MEDS: SODIUM HYPOCHLORITE (1/40) 1 APPLIC BTL IRR ×2 (09:52→21:00)
[2017-12-07] MEDS: FLUCONAZOLE 100 MG TAB PO (09:54)
[2017-12-08] MEDS: ACCU-CHEK XX (02:00)
[2017-12-08] MEDS: LEVOFLOXACIN 500 MG TAB PO (05:30)
[2017-12-08] MEDS: PANTOPRAZOLE 40 MG INJ IV (05:30)
[2017-12-08] MEDS: metroNIDAZOLE 500 MG TAB PO ×3 (05:30→21:46)
[2017-12-08] MEDS: LACTATED RINGER'S 1,000 ML IV ×2 (05:40→20:06)
[2017-12-08 06:32] LABS: ADD MAN DIFF? NO
[2017-12-08 06:34] LABS: WHITE BLOOD COUNT 6.5 10^3/ul (4.8-10.8)
[2017-12-08 06:34] LABS: BASOPHIL # 0.1 10^3/ul (0.0-0.1); BASOPHILS % 1.1 % (0.0-2.0); EOSINOPHILS # 0.2 10^3/ul (0.0-0.5); EOSINOPHILS % 3.6 % (0.0-7.0); HEMATOCRIT 35.9 % (42.0-52.0); HEMOGLOBIN 11.5 g/dl (14.0-18.0); LYMPHOCYTES # 1.5 10^3/ul (0.8-2.9); LYMPHOCYTES % 22.8 % (15.0-51.0); MEAN CORPUSCULAR VOLUME 87.3 fl (82.0-101.0); MEAN PLATELET VOLUME 10.1 fl (7.4-10.4); MONOCYTE # 0.7 10^3/ul (0.3-0.9); MONOCYTES % 10.1 % (0.0-11.0); NEUTROPHILS % 61.9 % (39.0-77.0); PLATELET COUNT 226 10^3/UL (140-415); RED BLOOD COUNT 4.11 10^6/ul (4.70-6.10); RED CELL DISTRIBUTION WIDTH 12.9 % (11.5-14.5)
[2017-12-08 06:58] LABS: ANION GAP 11 (8-16); BLOOD UREA NITROGEN 10 mg/dl (7-20); CALCIUM 8.9 mg/dl (8.4-10.2); CARBON DIOXIDE 27 mmol/L (21-31); CHLORIDE 104 mmol/L (97-110); CREATININE 0.75 mg/dl (0.61-1.24); GLUCOSE 108 mg/dl (70-220); POTASSIUM 3.8 mmol/L (3.5-5.1); SODIUM 138 mmol/L (135-144)
[2017-12-08 07:11] LABS: VANCOMYCIN,TROUGH 20.1 ug/ml (10.0-20.0)
[2017-12-08 07:21] LABS: PHOSPHORUS 4.5 mg/dl (2.5-4.9)
[2017-12-08 07:21] LABS: MAGNESIUM 1.6 mg/dl (1.7-2.5)
[2017-12-08] MEDS: INSULIN ASPART [NOVOLOG] 3 ML PEN SC ×4 (08:00→20:06)
[2017-12-08] MEDS: LISINOPRIL 20 MG TAB PO (08:42)
[2017-12-08] MEDS: CLOPIDOGREL 75 MG TAB PO (08:42)
[2017-12-08] MEDS: POLYETHYLENE GLYCOL 17 GM PACKET PO ×4 (08:42→20:16)
[2017-12-08] MEDS: LINAGLIPTIN 5 MG TABLET PO (08:42)
[2017-12-08] MEDS: FLUCONAZOLE 100 MG TAB PO (08:42)
[2017-12-08] MEDS: CHOLECALCIFEROL 2,000 UNIT CAP PO (08:43)
[2017-12-08] MEDS: REPAGLINIDE 1 MG TAB PO ×3 (08:43→17:54)
[2017-12-08] MEDS: metFORMIN 500 MG TAB PO ×2 (08:43→17:55)
[2017-12-08] MEDS: HEPARIN 5,000 UNIT/0.5 ML VIAL SC ×2 (08:46→20:13)
[2017-12-08] MEDS: ASPIRIN 81 MG TAB NGT (08:49)
[2017-12-08] MEDS: SODIUM HYPOCHLORITE (1/40) 1 APPLIC BTL IRR ×2 (09:00→20:06)
[2017-12-08] MEDS: VANCOMYCIN 1.5 GM in SOD CHLORIDE 0.9% 250 ML IVPB (09:35)
[2017-12-08] MEDS: MAGNESIUM SULFATE 2 GM/50 ML 50 ML IVPB (11:07)
[2017-12-08] MEDS: INSULIN GLARGINE [LANTus] (100 UNITS/ML) SYG SC (12:18)
[2017-12-08] MEDS: VANCOMYCIN 1 GM 250 ML IVPB (23:17)
[2017-12-09] MEDS: ACCU-CHEK XX (02:00)
[2017-12-09] MEDS: PANTOPRAZOLE 40 MG INJ IV (05:26)
[2017-12-09] MEDS: LEVOFLOXACIN 500 MG TAB PO (05:26)
[2017-12-09] MEDS: metroNIDAZOLE 500 MG TAB PO ×3 (05:26→21:50)
[2017-12-09] MEDS: INSULIN ASPART [NOVOLOG] 3 ML PEN SC ×4 (08:00→20:38)
[2017-12-09] MEDS: metFORMIN 500 MG TAB PO ×2 (08:01→17:31)
[2017-12-09] MEDS: REPAGLINIDE 1 MG TAB PO ×3 (08:01→17:31)
[2017-12-09] MEDS: INSULIN GLARGINE [LANTus] (100 UNITS/ML) SYG SC (08:59)
[2017-12-09] MEDS: POLYETHYLENE GLYCOL 17 GM PACKET PO ×2 (09:00→20:40)
[2017-12-09] MEDS: SODIUM HYPOCHLORITE (1/40) 1 APPLIC BTL IRR ×2 (09:00→20:38)
[2017-12-09] MEDS: HEPARIN 5,000 UNIT/0.5 ML VIAL SC ×2 (09:00→20:39)
[2017-12-09] MEDS: ASPIRIN 81 MG TAB NGT (09:01)
[2017-12-09] MEDS: FLUCONAZOLE 100 MG TAB PO (09:01)
[2017-12-09] MEDS: CLOPIDOGREL 75 MG TAB PO (09:01)
[2017-12-09] MEDS: LINAGLIPTIN 5 MG TABLET PO (09:01)
[2017-12-09] MEDS: CHOLECALCIFEROL 2,000 UNIT CAP PO (09:01)
[2017-12-09] MEDS: LISINOPRIL 20 MG TAB PO (09:02)
[2017-12-09] MEDS: VANCOMYCIN 1 GM 250 ML IVPB ×2 (11:15→22:48)
[2017-12-09] MEDS: LACTATED RINGER'S 1,000 ML IV ×2 (12:30→15:41)
[2017-12-10] MEDS: ACCU-CHEK XX (02:00)
[2017-12-10] MEDS: LEVOFLOXACIN 500 MG TAB PO (06:19)
[2017-12-10] MEDS: metroNIDAZOLE 500 MG TAB PO ×3 (06:19→22:01)
[2017-12-10] MEDS: PANTOPRAZOLE 40 MG INJ IV (06:19)
[2017-12-10] MEDS: INSULIN ASPART [NOVOLOG] 3 ML PEN SC ×4 (08:00→22:00)
[2017-12-10] MEDS: INSULIN GLARGINE [LANTus] (100 UNITS/ML) SYG SC (08:05)
[2017-12-10] MEDS: HEPARIN 5,000 UNIT/0.5 ML VIAL SC ×2 (08:06→22:03)
[2017-12-10] MEDS: LISINOPRIL 20 MG TAB PO (08:07)
[2017-12-10] MEDS: ASPIRIN 81 MG TAB NGT (08:07)
[2017-12-10] MEDS: CHOLECALCIFEROL 2,000 UNIT CAP PO (08:07)
[2017-12-10] MEDS: metFORMIN 500 MG TAB PO ×2 (08:07→17:54)
[2017-12-10] MEDS: LINAGLIPTIN 5 MG TABLET PO (08:07)
[2017-12-10] MEDS: CLOPIDOGREL 75 MG TAB PO (08:07)
[2017-12-10] MEDS: FLUCONAZOLE 100 MG TAB PO (08:07)
[2017-12-10] MEDS: REPAGLINIDE 1 MG TAB PO ×3 (08:09→17:54)
[2017-12-10] MEDS: POLYETHYLENE GLYCOL 17 GM PACKET PO ×2 (08:09→21:00)
[2017-12-10] MEDS: SODIUM HYPOCHLORITE (1/40) 1 APPLIC BTL IRR ×2 (09:00→21:00)
[2017-12-10] MEDS: VANCOMYCIN 1 GM 250 ML IVPB ×2 (10:28→23:05)
[2017-12-10] MEDS: LACTATED RINGER'S 1,000 ML IV (12:30)
[2017-12-10 14:03] LABS: CREATININE 0.68 mg/dl (0.61-1.24)
[2017-12-10 14:03] LABS: BLOOD UREA NITROGEN 8 mg/dl (7-20)
[2017-12-10 22:55] LABS: VANCOMYCIN,TROUGH 10.8 ug/ml (10.0-20.0)
[2017-12-11] MEDS: ACCU-CHEK XX (02:00)
[2017-12-11] MEDS: PANTOPRAZOLE 40 MG INJ IV (05:54)
[2017-12-11] MEDS: metroNIDAZOLE 500 MG TAB PO ×3 (05:54→22:34)
[2017-12-11] MEDS: LEVOFLOXACIN 500 MG TAB PO (05:54)
[2017-12-11] MEDS: INSULIN ASPART [NOVOLOG] 3 ML PEN SC ×4 (08:00→20:35)
[2017-12-11] MEDS: HEPARIN 5,000 UNIT/0.5 ML VIAL SC ×2 (08:28→20:34)
[2017-12-11] MEDS: INSULIN GLARGINE [LANTus] (100 UNITS/ML) SYG SC (08:28)
[2017-12-11] MEDS: CLOPIDOGREL 75 MG TAB PO (08:29)
[2017-12-11] MEDS: REPAGLINIDE 1 MG TAB PO ×3 (08:29→17:28)
[2017-12-11] MEDS: LACTATED RINGER'S 1,000 ML IV ×2 (08:30→17:28)
[2017-12-11] MEDS: metFORMIN 500 MG TAB PO ×2 (08:32→17:28)
[2017-12-11] MEDS: ASPIRIN 81 MG TAB NGT (08:36)
[2017-12-11] MEDS: CHOLECALCIFEROL 2,000 UNIT CAP PO (08:36)
[2017-12-11] MEDS: LISINOPRIL 20 MG TAB PO (08:36)
[2017-12-11] MEDS: LINAGLIPTIN 5 MG TABLET PO (08:36)
[2017-12-11] MEDS: FLUCONAZOLE 100 MG TAB PO (08:36)
[2017-12-11] MEDS: POLYETHYLENE GLYCOL 17 GM PACKET PO ×2 (08:37→20:30)
[2017-12-11] MEDS: SODIUM HYPOCHLORITE (1/40) 1 APPLIC BTL IRR ×2 (11:53→20:30)
[2017-12-11] MEDS: VANCOMYCIN 1.25 GM in SOD CHLORIDE 0.9% 250 ML IVPB ×2 (11:53→22:34)
[2017-12-12] MEDS: DEXTROSE 5%-0.45% NACL 1,000 ML IV (00:46)
[2017-12-12] MEDS: INSULIN ASPART [NOVOLOG] 3 ML PEN SC ×6 (00:51→20:55)
[2017-12-12] MEDS ORDERED: INSULIN ASPART [NOVOLOG] 3 ML PEN SC (01:00)
[2017-12-12] MEDS: ACCU-CHEK XX (01:12)
[2017-12-12] MEDS: LEVOFLOXACIN 500 MG TAB PO (05:47)
[2017-12-12] MEDS: metroNIDAZOLE 500 MG TAB PO ×3 (05:47→22:32)
[2017-12-12] MEDS: PANTOPRAZOLE 40 MG INJ IV (06:00)
[2017-12-12] MEDS ORDERED: LIDOCAINE 2% (SDV) 5 ML INJ (07:00)
[2017-12-12] MEDS ORDERED: PROPOFOL 200 MG INJ (07:00)
[2017-12-12] MEDS: REPAGLINIDE 1 MG TAB PO ×3 (07:30→17:33)
[2017-12-12] MEDS: metFORMIN 500 MG TAB PO ×2 (08:00→17:33)
[2017-12-12] MEDS: SODIUM HYPOCHLORITE (1/40) 1 APPLIC BTL IRR ×2 (08:24→20:52)
[2017-12-12] MEDS: LINAGLIPTIN 5 MG TABLET PO (08:24)
[2017-12-12] MEDS: ASPIRIN 81 MG TAB NGT (08:24)
[2017-12-12] MEDS: CLOPIDOGREL 75 MG TAB PO (08:24)
[2017-12-12] MEDS: POLYETHYLENE GLYCOL 17 GM PACKET PO ×2 (08:24→20:52)
[2017-12-12] MEDS: CHOLECALCIFEROL 2,000 UNIT CAP PO (08:25)
[2017-12-12] MEDS: HEPARIN 5,000 UNIT/0.5 ML VIAL SC ×2 (08:25→20:56)
[2017-12-12] MEDS: FLUCONAZOLE 100 MG TAB PO (08:25)
[2017-12-12] MEDS: LISINOPRIL 20 MG TAB PO (08:26)
[2017-12-12] MEDS: INSULIN GLARGINE [LANTus] (100 UNITS/ML) SYG SC (09:44)
[2017-12-12] MEDS: VANCOMYCIN 1.25 GM in SOD CHLORIDE 0.9% 250 ML IVPB ×2 (10:22→22:32)
[2017-12-12] MEDS ORDERED: LABETALOL HCL 20MG INJ IV (18:30)
[2017-12-12] MEDS ORDERED: FENTAnyl 50 MCG/ML VIAL IV ×2 (18:30)
[2017-12-12] MEDS ORDERED: METOCLOPRAMIDE 10 MG INJ IV (18:30)
[2017-12-12] MEDS ORDERED: hydrALAzine 20 MG INJ IV (18:30)
[2017-12-12] MEDS ORDERED: ONDANSETRON 4 MG INJ IV (18:30)
[2017-12-12] MEDS ORDERED: DIPHENHYDRAMINE 50 MG INJ IV (18:30)
[2017-12-12] MEDS ORDERED: HYDROmorphONE 1 MG/5 ML IV SYRINGE IV ×2 (18:30)
[2017-12-12] MEDS: LIDOCAINE 1%/EPI 30 ML INJ (18:39)
[2017-12-12] MEDS: MINERAL OIL LIGHT 10 ML VIAL (18:39)
[2017-12-12] MEDS: SOD CHLORIDE 0.9% 1,000 ML IV (20:52)
[2017-12-13] MEDS: ACCU-CHEK XX (01:07)
[2017-12-13] MEDS: ALTEPLASE (CATHFLO) 2 MG INJ CATHETER (01:39)
[2017-12-13] MEDS: PANTOPRAZOLE 40 MG INJ IV (05:09)
[2017-12-13] MEDS: metroNIDAZOLE 500 MG TAB PO ×3 (05:09→21:16)
[2017-12-13] MEDS: LEVOFLOXACIN 500 MG TAB PO (05:09)
[2017-12-13 06:23] LABS: CREATININE 0.65 mg/dl (0.61-1.24)
[2017-12-13 06:23] LABS: BLOOD UREA NITROGEN 9 mg/dl (7-20)
[2017-12-13] MEDS: INSULIN ASPART [NOVOLOG] 3 ML PEN SC ×4 (08:00→20:31)
[2017-12-13] MEDS: INSULIN GLARGINE [LANTus] (100 UNITS/ML) SYG SC (08:05)
[2017-12-13] MEDS: POLYETHYLENE GLYCOL 17 GM PACKET PO ×2 (08:09→20:31)
[2017-12-13] MEDS: LINAGLIPTIN 5 MG TABLET PO (08:09)
[2017-12-13] MEDS: REPAGLINIDE 1 MG TAB PO ×3 (08:09→17:24)
[2017-12-13] MEDS: CLOPIDOGREL 75 MG TAB PO (08:09)
[2017-12-13] MEDS: CHOLECALCIFEROL 2,000 UNIT CAP PO (08:09)
[2017-12-13] MEDS: FLUCONAZOLE 100 MG TAB PO (08:09)
[2017-12-13] MEDS: metFORMIN 500 MG TAB PO ×2 (08:09→17:24)
[2017-12-13] MEDS: LISINOPRIL 20 MG TAB PO (08:16)
[2017-12-13] MEDS: ASPIRIN 81 MG TAB NGT (08:16)
[2017-12-13] MEDS: HEPARIN 5,000 UNIT/0.5 ML VIAL SC ×2 (09:00→21:18)
[2017-12-13] MEDS: SODIUM HYPOCHLORITE (1/40) 1 APPLIC BTL IRR ×2 (09:00→20:31)
[2017-12-13] MEDS: VANCOMYCIN 1.25 GM in SOD CHLORIDE 0.9% 250 ML IVPB ×2 (11:12→22:32)
[2017-12-13] MEDS: SOD CHLORIDE 0.9% 1,000 ML IV (15:55)
[2017-12-13 23:08] LABS: VANCOMYCIN,TROUGH 14.3 ug/ml (10.0-20.0)
[2017-12-14] MEDS: ACCU-CHEK XX (00:01)
[2017-12-14] MEDS: PANTOPRAZOLE 40 MG INJ IV (05:28)
[2017-12-14] MEDS: SOD CHLORIDE 0.9% 1,000 ML IV (05:28)
[2017-12-14] MEDS: LEVOFLOXACIN 500 MG TAB PO (05:28)
[2017-12-14] MEDS: metroNIDAZOLE 500 MG TAB PO ×3 (05:28→21:05)
[2017-12-14] MEDS: INSULIN ASPART [NOVOLOG] 3 ML PEN SC ×4 (08:00→20:38)
[2017-12-14] MEDS: INSULIN GLARGINE [LANTus] (100 UNITS/ML) SYG SC (08:00)
[2017-12-14] MEDS: HEPARIN 5,000 UNIT/0.5 ML VIAL SC ×2 (08:01→20:37)
[2017-12-14] MEDS: REPAGLINIDE 1 MG TAB PO ×3 (08:04→17:15)
[2017-12-14] MEDS: CHOLECALCIFEROL 2,000 UNIT CAP PO (08:04)
[2017-12-14] MEDS: CLOPIDOGREL 75 MG TAB PO (08:04)
[2017-12-14] MEDS: LISINOPRIL 20 MG TAB PO (08:04)
[2017-12-14] MEDS: FLUCONAZOLE 100 MG TAB PO (08:04)
[2017-12-14] MEDS: LINAGLIPTIN 5 MG TABLET PO (08:04)
[2017-12-14] MEDS: metFORMIN 500 MG TAB PO ×2 (08:04→17:15)
[2017-12-14] MEDS: ASPIRIN 81 MG TAB NGT (08:11)
[2017-12-14] MEDS: POLYETHYLENE GLYCOL 17 GM PACKET PO ×2 (08:12→20:38)
[2017-12-14] MEDS: SODIUM HYPOCHLORITE (1/40) 1 APPLIC BTL IRR ×2 (08:12→20:37)
[2017-12-14] MEDS: VANCOMYCIN 1.25 GM in SOD CHLORIDE 0.9% 250 ML IVPB ×2 (10:53→22:58)
[2017-12-15] MEDS: ACCU-CHEK XX (02:00)
[2017-12-15] MEDS: metroNIDAZOLE 500 MG TAB PO ×3 (05:09→23:11)
[2017-12-15] MEDS: PANTOPRAZOLE 40 MG INJ IV (05:09)
[2017-12-15] MEDS: LEVOFLOXACIN 500 MG TAB PO (05:09)
[2017-12-15] MEDS: SODIUM HYPOCHLORITE (1/40) 1 APPLIC BTL IRR ×2 (07:53→21:00)
[2017-12-15] MEDS: SOD CHLORIDE 0.9% 1,000 ML IV (08:01)
[2017-12-15] MEDS: REPAGLINIDE 1 MG TAB PO ×3 (08:02→17:12)
[2017-12-15] MEDS: metFORMIN 500 MG TAB PO ×2 (08:02→17:13)
[2017-12-15] MEDS: INSULIN GLARGINE [LANTus] (100 UNITS/ML) SYG SC (08:04)
[2017-12-15] MEDS: HEPARIN 5,000 UNIT/0.5 ML VIAL SC ×2 (08:05→21:00)
[2017-12-15] MEDS: INSULIN ASPART [NOVOLOG] 3 ML PEN SC ×4 (08:05→21:00)
[2017-12-15] MEDS: ASPIRIN 81 MG TAB NGT (08:39)
[2017-12-15] MEDS: POLYETHYLENE GLYCOL 17 GM PACKET PO ×2 (08:39→21:00)
[2017-12-15] MEDS: LINAGLIPTIN 5 MG TABLET PO (09:21)
[2017-12-15] MEDS: FLUCONAZOLE 100 MG TAB PO (09:21)
[2017-12-15] MEDS: CLOPIDOGREL 75 MG TAB PO (09:21)
[2017-12-15] MEDS: LISINOPRIL 20 MG TAB PO (09:21)
[2017-12-15] MEDS: CHOLECALCIFEROL 2,000 UNIT CAP PO (09:21)
[2017-12-15] MEDS: VANCOMYCIN 1.25 GM in SOD CHLORIDE 0.9% 250 ML IVPB ×2 (10:29→23:11)
[2017-12-15 18:42] LABS: ERYTHROCYTE SEDIMENTATION RATE 60 mm/Hr (0-20)
[2017-12-15] MEDS: ALTEPLASE (CATHFLO) 2 MG INJ CATHETER (20:57)
[2017-12-16] MEDS: ACCU-CHEK XX (02:00)
[2017-12-16] MEDS: PANTOPRAZOLE 40 MG INJ IV (05:26)
[2017-12-16] MEDS: LEVOFLOXACIN 500 MG TAB PO (05:26)
[2017-12-16] MEDS: metroNIDAZOLE 500 MG TAB PO ×3 (05:26→22:36)
[2017-12-16] MEDS: SOD CHLORIDE 0.9% 1,000 ML IV (05:28)
[2017-12-16] MEDS: INSULIN ASPART [NOVOLOG] 3 ML PEN SC ×4 (08:00→20:28)
[2017-12-16] MEDS: POLYETHYLENE GLYCOL 17 GM PACKET PO ×2 (09:00→20:29)
[2017-12-16] MEDS: ASPIRIN 81 MG TAB NGT (09:00)
[2017-12-16] MEDS: SODIUM HYPOCHLORITE (1/40) 1 APPLIC BTL IRR ×2 (09:00→20:25)
[2017-12-16] MEDS: CLOPIDOGREL 75 MG TAB PO (10:08)
[2017-12-16] MEDS: FLUCONAZOLE 100 MG TAB PO (10:08)
[2017-12-16] MEDS: metFORMIN 500 MG TAB PO ×2 (10:08→18:56)
[2017-12-16] MEDS: REPAGLINIDE 1 MG TAB PO ×3 (10:08→17:35)
[2017-12-16] MEDS: LINAGLIPTIN 5 MG TABLET PO (10:08)
[2017-12-16] MEDS: LISINOPRIL 20 MG TAB PO (10:09)
[2017-12-16] MEDS: CHOLECALCIFEROL 2,000 UNIT CAP PO (10:09)
[2017-12-16] MEDS: INSULIN GLARGINE [LANTus] (100 UNITS/ML) SYG SC (10:10)
[2017-12-16] MEDS: HEPARIN 5,000 UNIT/0.5 ML VIAL SC ×2 (10:11→20:31)
[2017-12-16] MEDS: VANCOMYCIN 1.25 GM in SOD CHLORIDE 0.9% 250 ML IVPB ×2 (12:26→22:36)
[2017-12-16 13:39] LABS: CREATININE 0.64 mg/dl (0.61-1.24)
[2017-12-16 13:39] LABS: BLOOD UREA NITROGEN 8 mg/dl (7-20)
[2017-12-16] MEDS ORDERED: REPAGLINIDE 2 MG TAB PO (18:30)
[2017-12-17] MEDS: ACCU-CHEK XX (01:09)
[2017-12-17] MEDS: metroNIDAZOLE 500 MG TAB PO ×3 (05:28→22:49)
[2017-12-17] MEDS: LEVOFLOXACIN 500 MG TAB PO (05:28)
[2017-12-17] MEDS: PANTOPRAZOLE 40 MG INJ IV (05:28)
[2017-12-17] MEDS: INSULIN ASPART [NOVOLOG] 3 ML PEN SC ×4 (08:00→20:20)
[2017-12-17] MEDS: REPAGLINIDE 1 MG TAB PO ×3 (08:24→16:46)
[2017-12-17] MEDS: CHOLECALCIFEROL 2,000 UNIT CAP PO (08:25)
[2017-12-17] MEDS: LINAGLIPTIN 5 MG TABLET PO (08:25)
[2017-12-17] MEDS: FLUCONAZOLE 100 MG TAB PO (08:25)
[2017-12-17] MEDS: metFORMIN 500 MG TAB PO ×2 (08:25→17:14)
[2017-12-17] MEDS: CLOPIDOGREL 75 MG TAB PO (08:25)
[2017-12-17] MEDS: ASPIRIN 81 MG TAB NGT (08:27)
[2017-12-17] MEDS: POLYETHYLENE GLYCOL 17 GM PACKET PO ×2 (08:27→20:21)
[2017-12-17] MEDS: LISINOPRIL 20 MG TAB PO (08:30)
[2017-12-17] MEDS: SODIUM HYPOCHLORITE (1/40) 1 APPLIC BTL IRR ×2 (08:30→20:17)
[2017-12-17] MEDS: HEPARIN 5,000 UNIT/0.5 ML VIAL SC ×2 (08:32→20:26)
[2017-12-17] MEDS: INSULIN GLARGINE [LANTus] (100 UNITS/ML) SYG SC (08:32)
[2017-12-17 10:51] LABS: VANCOMYCIN,TROUGH 14.8 ug/ml (10.0-20.0)
[2017-12-17] MEDS: VANCOMYCIN 1.25 GM in SOD CHLORIDE 0.9% 250 ML IVPB ×2 (12:26→22:49)
[2017-12-17] MEDS: SOD CHLORIDE 0.9% 1,000 ML IV ×2 (16:46)
[2017-12-18] MEDS: ACCU-CHEK XX ×2 (01:51→22:26)
[2017-12-18] MEDS: PANTOPRAZOLE 40 MG INJ IV (06:39)
[2017-12-18] MEDS: LEVOFLOXACIN 500 MG TAB PO (06:39)
[2017-12-18] MEDS: metroNIDAZOLE 500 MG TAB PO ×3 (06:39→22:10)
[2017-12-18] MEDS: INSULIN ASPART [NOVOLOG] 3 ML PEN SC ×4 (08:00→20:47)
[2017-12-18] MEDS: SODIUM HYPOCHLORITE (1/40) 1 APPLIC BTL IRR ×2 (09:00→20:47)
[2017-12-18] MEDS: ASPIRIN 81 MG TAB NGT (09:00)
[2017-12-18] MEDS: POLYETHYLENE GLYCOL 17 GM PACKET PO ×2 (09:00→20:47)
[2017-12-18] MEDS: metFORMIN 500 MG TAB PO ×2 (09:34→17:41)
[2017-12-18] MEDS: REPAGLINIDE 1 MG TAB PO ×3 (09:34→17:41)
[2017-12-18] MEDS: FLUCONAZOLE 100 MG TAB PO (09:35)
[2017-12-18] MEDS: CLOPIDOGREL 75 MG TAB PO (09:35)
[2017-12-18] MEDS: LINAGLIPTIN 5 MG TABLET PO (09:35)
[2017-12-18] MEDS: CHOLECALCIFEROL 2,000 UNIT CAP PO (09:35)
[2017-12-18] MEDS: LISINOPRIL 20 MG TAB PO (09:35)
[2017-12-18] MEDS: HEPARIN 5,000 UNIT/0.5 ML VIAL SC ×2 (09:37→20:47)
[2017-12-18] MEDS: INSULIN GLARGINE [LANTus] (100 UNITS/ML) SYG SC (09:39)
[2017-12-18] MEDS: VANCOMYCIN 1.25 GM in SOD CHLORIDE 0.9% 250 ML IVPB ×2 (11:48→22:11)
[2017-12-18] MEDS: SOD CHLORIDE 0.9% 1,000 ML IV ×2 (15:43→22:11)
[2017-12-19] MEDS: PANTOPRAZOLE 40 MG INJ IV (05:25)
[2017-12-19] MEDS: LEVOFLOXACIN 500 MG TAB PO (05:25)
[2017-12-19] MEDS: metroNIDAZOLE 500 MG TAB PO ×3 (05:25→22:15)
[2017-12-19 07:21] LABS: CREATININE 0.69 mg/dl (0.61-1.24)
[2017-12-19 07:21] LABS: BLOOD UREA NITROGEN 6 mg/dl (7-20)
[2017-12-19] MEDS: INSULIN ASPART [NOVOLOG] 3 ML PEN SC ×4 (07:58→20:38)
[2017-12-19] MEDS: REPAGLINIDE 1 MG TAB PO ×3 (07:59→17:35)
[2017-12-19] MEDS: metFORMIN 500 MG TAB PO ×2 (07:59→17:47)
[2017-12-19] MEDS: INSULIN GLARGINE [LANTus] (100 UNITS/ML) SYG SC (08:02)
[2017-12-19] MEDS: HEPARIN 5,000 UNIT/0.5 ML VIAL SC ×2 (08:03→20:41)
[2017-12-19] MEDS: CHOLECALCIFEROL 2,000 UNIT CAP PO (08:04)
[2017-12-19] MEDS: FLUCONAZOLE 100 MG TAB PO (08:04)
[2017-12-19] MEDS: LINAGLIPTIN 5 MG TABLET PO (08:04)
[2017-12-19] MEDS: CLOPIDOGREL 75 MG TAB PO (08:04)
[2017-12-19] MEDS: POLYETHYLENE GLYCOL 17 GM PACKET PO ×2 (08:05→20:24)
[2017-12-19] MEDS: ASPIRIN 81 MG TAB NGT (08:05)
[2017-12-19] MEDS: SODIUM HYPOCHLORITE (1/40) 1 APPLIC BTL IRR ×2 (08:06→20:24)
[2017-12-19] MEDS: LISINOPRIL 20 MG TAB PO (08:11)
[2017-12-19] MEDS: ALTEPLASE (CATHFLO) 2 MG INJ CATHETER (11:18)
[2017-12-19] MEDS: VANCOMYCIN 1.25 GM in SOD CHLORIDE 0.9% 250 ML IVPB ×2 (12:17→22:15)
[2017-12-20] MEDS: ACCU-CHEK XX (02:00)
[2017-12-20] MEDS: LEVOFLOXACIN 500 MG TAB PO (05:52)
[2017-12-20] MEDS: PANTOPRAZOLE 40 MG INJ IV (05:52)
[2017-12-20] MEDS: metroNIDAZOLE 500 MG TAB PO ×3 (05:52→22:08)
[2017-12-20] MEDS: INSULIN ASPART [NOVOLOG] 3 ML PEN SC ×4 (07:52→20:26)
[2017-12-20] MEDS: SOD CHLORIDE 0.9% 1,000 ML IV ×2 (07:53→09:24)
[2017-12-20] MEDS: ASPIRIN 81 MG TAB NGT (08:16)
[2017-12-20] MEDS: CLOPIDOGREL 75 MG TAB PO (08:17)
[2017-12-20] MEDS: POLYETHYLENE GLYCOL 17 GM PACKET PO ×2 (08:17→20:26)
[2017-12-20] MEDS: metFORMIN 500 MG TAB PO ×3 (08:17→17:41)
[2017-12-20] MEDS: CHOLECALCIFEROL 2,000 UNIT CAP PO (08:17)
[2017-12-20] MEDS: REPAGLINIDE 1 MG TAB PO ×3 (08:17→17:12)
[2017-12-20] MEDS: INSULIN GLARGINE [LANTus] (100 UNITS/ML) SYG SC (08:18)
[2017-12-20] MEDS: LISINOPRIL 20 MG TAB PO (08:19)
[2017-12-20] MEDS: FLUCONAZOLE 100 MG TAB PO (08:19)
[2017-12-20] MEDS: LINAGLIPTIN 5 MG TABLET PO (08:19)
[2017-12-20] MEDS: SODIUM HYPOCHLORITE (1/40) 1 APPLIC BTL IRR ×2 (08:19→20:26)
[2017-12-20] MEDS: HEPARIN 5,000 UNIT/0.5 ML VIAL SC ×2 (08:19→20:25)
[2017-12-20] MEDS: VANCOMYCIN 1.25 GM in SOD CHLORIDE 0.9% 250 ML IVPB ×2 (11:04→22:10)
[2017-12-21] MEDS: ACCU-CHEK XX (01:37)
[2017-12-21] MEDS: metroNIDAZOLE 500 MG TAB PO ×3 (05:39→21:07)
[2017-12-21] MEDS: PANTOPRAZOLE 40 MG INJ IV (05:39)
[2017-12-21] MEDS: LEVOFLOXACIN 500 MG TAB PO (05:39)
[2017-12-21] MEDS: INSULIN ASPART [NOVOLOG] 3 ML PEN SC ×4 (08:42→21:00)
[2017-12-21] MEDS: HEPARIN 5,000 UNIT/0.5 ML VIAL SC ×2 (08:43→21:12)
[2017-12-21] MEDS: INSULIN GLARGINE [LANTus] (100 UNITS/ML) SYG SC (08:43)
[2017-12-21] MEDS: CLOPIDOGREL 75 MG TAB PO (08:44)
[2017-12-21] MEDS: LINAGLIPTIN 5 MG TABLET PO (08:44)
[2017-12-21] MEDS: FLUCONAZOLE 100 MG TAB PO (08:44)
[2017-12-21] MEDS: REPAGLINIDE 1 MG TAB PO ×3 (08:44→18:32)
[2017-12-21] MEDS: CHOLECALCIFEROL 2,000 UNIT CAP PO (08:44)
[2017-12-21] MEDS: metFORMIN 500 MG TAB PO ×2 (08:44→18:32)
[2017-12-21] MEDS: LISINOPRIL 20 MG TAB PO (08:45)
[2017-12-21] MEDS: ASPIRIN 81 MG TAB NGT (09:00)
[2017-12-21] MEDS: SODIUM HYPOCHLORITE (1/40) 1 APPLIC BTL IRR ×2 (09:00→21:15)
[2017-12-21] MEDS: POLYETHYLENE GLYCOL 17 GM PACKET PO ×2 (09:00→21:00)
[2017-12-21] MEDS: VANCOMYCIN 1.25 GM in SOD CHLORIDE 0.9% 250 ML IVPB ×2 (11:24→23:14)
[2017-12-21 22:58] LABS: VANCOMYCIN,TROUGH 15.4 ug/ml (10.0-20.0)
[2017-12-21] MEDS: SOD CHLORIDE 0.9% 1,000 ML IV (23:14)
[2017-12-22] MEDS: ACCU-CHEK XX (02:00)
[2017-12-22] MEDS: LEVOFLOXACIN 500 MG TAB PO (05:01)
[2017-12-22] MEDS: metroNIDAZOLE 500 MG TAB PO ×3 (05:01→21:16)
[2017-12-22] MEDS: PANTOPRAZOLE 40 MG INJ IV (05:02)
[2017-12-22 05:25] LABS: ADD MAN DIFF? NO
[2017-12-22 05:31] LABS: BASOPHILS % 0.5 % (0.0-2.0); EOSINOPHILS # 0.1 10^3/ul (0.0-0.5); EOSINOPHILS % 1.7 % (0.0-7.0); HEMATOCRIT 34.6 % (42.0-52.0); HEMOGLOBIN 11.4 g/dl (14.0-18.0); IMMATURE GRANS #M 0.03 10^3/ul; IMMATURE GRANS % (M) 0.5 %; LYMPHOCYTES # 1.3 10^3/ul (0.8-2.9); LYMPHOCYTES % 21.5 % (15.0-51.0); MEAN CORPUSCULAR HGB CONC 32.9 g/dl (32.0-37.0); MEAN PLATELET VOLUME 10.4 fl (7.4-10.4); MONOCYTE # 0.5 10^3/ul (0.3-0.9); MONOCYTES % 8.7 % (0.0-11.0); NEUTROPHIL # 3.9 10^3/ul (1.6-7.5); NEUTROPHILS % 67.1 % (39.0-77.0); PLATELET COUNT 202 10^3/UL (140-415); RED BLOOD COUNT 3.93 10^6/ul (4.70-6.10); RED CELL DISTRIBUTION WIDTH 13.8 % (11.5-14.5)
[2017-12-22 05:31] LABS: WHITE BLOOD COUNT 5.9 10^3/ul (4.8-10.8)
[2017-12-22 05:54] LABS: MAGNESIUM 1.7 mg/dl (1.7-2.5)
[2017-12-22 05:54] LABS: PHOSPHORUS 4.3 mg/dl (2.5-4.9)
[2017-12-22 05:55] LABS: ANION GAP 13 (8-16); BLOOD UREA NITROGEN 6 mg/dl (7-20); CALCIUM 8.8 mg/dl (8.4-10.2); CARBON DIOXIDE 26 mmol/L (21-31); CHLORIDE 105 mmol/L (97-110); CREATININE 0.63 mg/dl (0.61-1.24); GLUCOSE 90 mg/dl (70-220); POTASSIUM 3.5 mmol/L (3.5-5.1); SODIUM 140 mmol/L (135-144)
[2017-12-22] MEDS: INSULIN ASPART [NOVOLOG] 3 ML PEN SC ×4 (08:00→21:00)
[2017-12-22] MEDS: ASPIRIN 81 MG TAB NGT (09:00)
[2017-12-22] MEDS: SODIUM HYPOCHLORITE (1/40) 1 APPLIC BTL IRR ×2 (09:00→21:00)
[2017-12-22] MEDS: POLYETHYLENE GLYCOL 17 GM PACKET PO ×2 (09:00→21:00)
[2017-12-22] MEDS: FLUCONAZOLE 100 MG TAB PO (09:04)
[2017-12-22] MEDS: CLOPIDOGREL 75 MG TAB PO (09:04)
[2017-12-22] MEDS: CHOLECALCIFEROL 2,000 UNIT CAP PO (09:04)
[2017-12-22] MEDS: metFORMIN 500 MG TAB PO ×2 (09:04→18:05)
[2017-12-22] MEDS: LINAGLIPTIN 5 MG TABLET PO (09:04)
[2017-12-22] MEDS: REPAGLINIDE 1 MG TAB PO ×3 (09:04→17:35)
[2017-12-22] MEDS: LISINOPRIL 20 MG TAB PO (09:05)
[2017-12-22] MEDS: HEPARIN 5,000 UNIT/0.5 ML VIAL SC ×2 (09:06→21:15)
[2017-12-22] MEDS: INSULIN GLARGINE [LANTus] (100 UNITS/ML) SYG SC (09:06)
[2017-12-22] MEDS: VANCOMYCIN 1.25 GM in SOD CHLORIDE 0.9% 250 ML IVPB (11:40)
[2017-12-22] MEDS: SOD CHLORIDE 0.9% 1,000 ML IV (20:00)
[2017-12-23] MEDS: VANCOMYCIN 1.25 GM in SOD CHLORIDE 0.9% 250 ML IVPB ×2 (00:02→13:03)
[2017-12-23] MEDS: ACCU-CHEK XX (02:00)
[2017-12-23] MEDS: PANTOPRAZOLE 40 MG INJ IV (05:27)
[2017-12-23] MEDS: metroNIDAZOLE 500 MG TAB PO ×3 (05:27→22:47)
[2017-12-23] MEDS: LEVOFLOXACIN 500 MG TAB PO (05:27)
[2017-12-23] MEDS: INSULIN ASPART [NOVOLOG] 3 ML PEN SC ×4 (08:00→20:37)
[2017-12-23] MEDS: POLYETHYLENE GLYCOL 17 GM PACKET PO ×2 (09:00→20:36)
[2017-12-23] MEDS: SODIUM HYPOCHLORITE (1/40) 1 APPLIC BTL IRR ×2 (09:00→20:36)
[2017-12-23] MEDS: ASPIRIN 81 MG TAB NGT (09:00)
[2017-12-23] MEDS: SOD CHLORIDE 0.9% 1,000 ML IV (09:55)
[2017-12-23] MEDS: metFORMIN 500 MG TAB PO ×2 (09:56→18:12)
[2017-12-23] MEDS: REPAGLINIDE 1 MG TAB PO ×3 (09:56→18:12)
[2017-12-23] MEDS: FLUCONAZOLE 100 MG TAB PO (09:56)
[2017-12-23] MEDS: CLOPIDOGREL 75 MG TAB PO (09:56)
[2017-12-23] MEDS: CHOLECALCIFEROL 2,000 UNIT CAP PO (09:57)
[2017-12-23] MEDS: LINAGLIPTIN 5 MG TABLET PO (09:57)
[2017-12-23] MEDS: LISINOPRIL 20 MG TAB PO (09:57)
[2017-12-23] MEDS: INSULIN GLARGINE [LANTus] (100 UNITS/ML) SYG SC (09:58)
[2017-12-23] MEDS: HEPARIN 5,000 UNIT/0.5 ML VIAL SC ×2 (09:59→20:38)
[2017-12-24] MEDS: VANCOMYCIN 1.25 GM in SOD CHLORIDE 0.9% 250 ML IVPB ×2 (00:46→12:23)
[2017-12-24] MEDS: ACCU-CHEK XX (01:15)
[2017-12-24] MEDS: PANTOPRAZOLE 40 MG INJ IV (05:43)
[2017-12-24] MEDS: LEVOFLOXACIN 500 MG TAB PO (05:44)
[2017-12-24] MEDS: metroNIDAZOLE 500 MG TAB PO ×3 (05:47→22:27)
[2017-12-24] MEDS: INSULIN ASPART [NOVOLOG] 3 ML PEN SC ×4 (08:00→20:52)
[2017-12-24] MEDS: POLYETHYLENE GLYCOL 17 GM PACKET PO ×2 (08:08→20:50)
[2017-12-24] MEDS: metFORMIN 500 MG TAB PO ×2 (08:08→17:23)
[2017-12-24] MEDS: REPAGLINIDE 1 MG TAB PO ×3 (08:09→17:23)
[2017-12-24] MEDS: CLOPIDOGREL 75 MG TAB PO (08:09)
[2017-12-24] MEDS: LISINOPRIL 20 MG TAB PO (08:09)
[2017-12-24] MEDS: CHOLECALCIFEROL 2,000 UNIT CAP PO (08:09)
[2017-12-24] MEDS: ASPIRIN 81 MG TAB NGT (08:09)
[2017-12-24] MEDS: LINAGLIPTIN 5 MG TABLET PO (08:09)
[2017-12-24] MEDS: HEPARIN 5,000 UNIT/0.5 ML VIAL SC ×2 (08:10→20:51)
[2017-12-24] MEDS: INSULIN GLARGINE [LANTus] (100 UNITS/ML) SYG SC (08:12)
[2017-12-24] MEDS: SODIUM HYPOCHLORITE (1/40) 1 APPLIC BTL IRR ×2 (09:00→20:46)
[2017-12-24] MEDS: FLUCONAZOLE 100 MG TAB PO (11:05)
[2017-12-24] MEDS: SOD CHLORIDE 0.9% 1,000 ML IV (14:00)
[2017-12-25] MEDS: VANCOMYCIN 1.25 GM in SOD CHLORIDE 0.9% 250 ML IVPB ×2 (01:12→13:30)
[2017-12-25] MEDS: ACCU-CHEK XX (02:00)
[2017-12-25] MEDS: LEVOFLOXACIN 500 MG TAB PO (05:51)
[2017-12-25] MEDS: PANTOPRAZOLE 40 MG INJ IV (05:51)
[2017-12-25] MEDS: metroNIDAZOLE 500 MG TAB PO ×3 (05:51→20:32)
[2017-12-25] MEDS: SOD CHLORIDE 0.9% 1,000 ML IV (05:52)
[2017-12-25] MEDS: INSULIN ASPART [NOVOLOG] 3 ML PEN SC ×4 (08:00→20:33)
[2017-12-25] MEDS: POLYETHYLENE GLYCOL 17 GM PACKET PO ×2 (08:06→20:39)
[2017-12-25] MEDS: SODIUM HYPOCHLORITE (1/40) 1 APPLIC BTL IRR ×2 (08:06→20:33)
[2017-12-25] MEDS: HEPARIN 5,000 UNIT/0.5 ML VIAL SC ×2 (08:16→20:39)
[2017-12-25] MEDS: INSULIN GLARGINE [LANTus] (100 UNITS/ML) SYG SC (08:17)
[2017-12-25] MEDS: LINAGLIPTIN 5 MG TABLET PO (08:18)
[2017-12-25] MEDS: REPAGLINIDE 1 MG TAB PO ×3 (08:18→17:55)
[2017-12-25] MEDS: CHOLECALCIFEROL 2,000 UNIT CAP PO (08:18)
[2017-12-25] MEDS: FLUCONAZOLE 100 MG TAB PO (08:18)
[2017-12-25] MEDS: CLOPIDOGREL 75 MG TAB PO (08:18)
[2017-12-25] MEDS: metFORMIN 500 MG TAB PO ×2 (08:18→17:55)
[2017-12-25] MEDS: ASPIRIN 81 MG TAB NGT (08:19)
[2017-12-25] MEDS: LISINOPRIL 20 MG TAB PO (08:20)
[2017-12-25] MEDS: [UNRECOGNIZED DRUG - REMARK] XX (16:05)
[2017-12-26] MEDS: [UNRECOGNIZED DRUG - REMARK] XX ×3 (00:30→16:30)
[2017-12-26] MEDS: VANCOMYCIN 1.25 GM in SOD CHLORIDE 0.9% 250 ML IVPB ×2 (01:26→14:01)
[2017-12-26] MEDS: ACCU-CHEK XX (02:00)
[2017-12-26] MEDS: SOD CHLORIDE 0.9% 1,000 ML IV ×2 (04:00→19:53)
[2017-12-26] MEDS: PANTOPRAZOLE 40 MG INJ IV (06:02)
[2017-12-26] MEDS: LEVOFLOXACIN 500 MG TAB PO (06:02)
[2017-12-26] MEDS: metroNIDAZOLE 500 MG TAB PO ×3 (06:02→22:12)
[2017-12-26 06:59] LABS: CREATININE 0.64 mg/dl (0.61-1.24)
[2017-12-26 07:06] LABS: BLOOD UREA NITROGEN 7 mg/dl (7-20)
[2017-12-26] MEDS: INSULIN ASPART [NOVOLOG] 3 ML PEN SC ×4 (07:59→21:00)
[2017-12-26] MEDS: REPAGLINIDE 1 MG TAB PO ×3 (08:02→17:30)
[2017-12-26] MEDS: metFORMIN 500 MG TAB PO ×2 (08:02→17:31)
[2017-12-26] MEDS: INSULIN GLARGINE [LANTus] (100 UNITS/ML) SYG SC (08:05)
[2017-12-26] MEDS: ASPIRIN 81 MG TAB NGT ×2 (08:24→09:09)
[2017-12-26] MEDS: POLYETHYLENE GLYCOL 17 GM PACKET PO ×2 (08:24→21:00)
[2017-12-26] MEDS: CHOLECALCIFEROL 2,000 UNIT CAP PO (08:25)
[2017-12-26] MEDS: LINAGLIPTIN 5 MG TABLET PO (08:25)
[2017-12-26] MEDS: CLOPIDOGREL 75 MG TAB PO (08:25)
[2017-12-26] MEDS: FLUCONAZOLE 100 MG TAB PO (08:26)
[2017-12-26] MEDS: LISINOPRIL 20 MG TAB PO (08:26)
[2017-12-26] MEDS: HEPARIN 5,000 UNIT/0.5 ML VIAL SC ×2 (08:28→21:07)
[2017-12-26] MEDS: SODIUM HYPOCHLORITE (1/40) 1 APPLIC BTL IRR ×2 (08:29→21:00)
[2017-12-26] MEDS: SACCHAROMYCES BOULARDII 250 MG CAP PO ×3 (10:00→21:07)
[2017-12-27] MEDS: [UNRECOGNIZED DRUG - REMARK] XX ×3 (00:30→16:30)
[2017-12-27] MEDS: VANCOMYCIN 1.25 GM in SOD CHLORIDE 0.9% 250 ML IVPB ×2 (00:55→12:39)
[2017-12-27] MEDS: ACCU-CHEK XX (02:00)
[2017-12-27] MEDS: metroNIDAZOLE 500 MG TAB PO ×3 (06:00→22:05)
[2017-12-27] MEDS: LEVOFLOXACIN 500 MG TAB PO (06:00)
[2017-12-27] MEDS: PANTOPRAZOLE 40 MG INJ IV (06:00)
[2017-12-27 06:26] LABS: ADD MAN DIFF? NO
[2017-12-27 06:31] LABS: BASOPHILS % 0.6 % (0.0-2.0); EOSINOPHILS # 0.1 10^3/ul (0.0-0.5); EOSINOPHILS % 1.6 % (0.0-7.0); HEMATOCRIT 36.7 % (42.0-52.0); HEMOGLOBIN 12.1 g/dl (14.0-18.0); LYMPHOCYTES # 1.4 10^3/ul (0.8-2.9); LYMPHOCYTES % 23.1 % (15.0-51.0); MEAN CORPUSCULAR HEMOGLOBIN 28.9 pg (29.0-33.0); MEAN CORPUSCULAR VOLUME 87.8 fl (82.0-101.0); MEAN PLATELET VOLUME 10.7 fl (7.4-10.4); MONOCYTE # 0.6 10^3/ul (0.3-0.9); MONOCYTES % 9.1 % (0.0-11.0); NEUTROPHILS % 65.1 % (39.0-77.0); PLATELET COUNT 210 10^3/UL (140-415); RED BLOOD COUNT 4.18 10^6/ul (4.70-6.10); RED CELL DISTRIBUTION WIDTH 14.5 % (11.5-14.5)
[2017-12-27 06:31] LABS: WHITE BLOOD COUNT 6.2 10^3/ul (4.8-10.8)
[2017-12-27 07:04] LABS: ANION GAP 12 (8-16); BLOOD UREA NITROGEN 6 mg/dl (7-20); CALCIUM 9.1 mg/dl (8.4-10.2); CARBON DIOXIDE 26 mmol/L (21-31); CHLORIDE 104 mmol/L (97-110); GLUCOSE 85 mg/dl (70-220); POTASSIUM 4.1 mmol/L (3.5-5.1); SODIUM 138 mmol/L (135-144)
[2017-12-27] MEDS: INSULIN ASPART [NOVOLOG] 3 ML PEN SC ×4 (08:00→21:00)
[2017-12-27] MEDS: LINAGLIPTIN 5 MG TABLET PO (08:35)
[2017-12-27] MEDS: SACCHAROMYCES BOULARDII 250 MG CAP PO ×2 (08:35→21:31)
[2017-12-27] MEDS: CHOLECALCIFEROL 2,000 UNIT CAP PO (08:35)
[2017-12-27] MEDS: CLOPIDOGREL 75 MG TAB PO (08:35)
[2017-12-27] MEDS: POLYETHYLENE GLYCOL 17 GM PACKET PO ×2 (08:35→21:00)
[2017-12-27] MEDS: metFORMIN 500 MG TAB PO ×2 (08:35→17:27)
[2017-12-27] MEDS: LISINOPRIL 20 MG TAB PO (08:36)
[2017-12-27] MEDS: ASPIRIN 81 MG TAB NGT (08:36)
[2017-12-27] MEDS: FLUCONAZOLE 100 MG TAB PO (08:36)
[2017-12-27] MEDS: REPAGLINIDE 1 MG TAB PO ×3 (08:37→17:27)
[2017-12-27] MEDS: HEPARIN 5,000 UNIT/0.5 ML VIAL SC ×2 (08:38→21:32)
[2017-12-27] MEDS: INSULIN GLARGINE [LANTus] (100 UNITS/ML) SYG SC (08:39)
[2017-12-27] MEDS: SODIUM HYPOCHLORITE (1/40) 1 APPLIC BTL IRR ×2 (08:42→21:00)
[2017-12-27] MEDS: SOD CHLORIDE 0.9% 1,000 ML IV (20:00)
[2017-12-28] MEDS: VANCOMYCIN 1.25 GM in SOD CHLORIDE 0.9% 250 ML IVPB ×2 (00:55→13:16)
[2017-12-28] MEDS: ACCU-CHEK XX (02:00)
[2017-12-28] MEDS: LEVOFLOXACIN 500 MG TAB PO (06:17)
[2017-12-28] MEDS: metroNIDAZOLE 500 MG TAB PO ×3 (06:17→22:43)
[2017-12-28] MEDS: PANTOPRAZOLE 40 MG INJ IV (06:17)
[2017-12-28] MEDS: INSULIN ASPART [NOVOLOG] 3 ML PEN SC ×4 (08:00→20:39)
[2017-12-28] MEDS: SODIUM HYPOCHLORITE (1/40) 1 APPLIC BTL IRR ×2 (08:10→20:40)
[2017-12-28] MEDS: POLYETHYLENE GLYCOL 17 GM PACKET PO ×2 (08:10→20:40)
[2017-12-28] MEDS: ASPIRIN 81 MG TAB NGT (08:10)
[2017-12-28] MEDS: REPAGLINIDE 1 MG TAB PO ×3 (08:26→17:44)
[2017-12-28] MEDS: metFORMIN 500 MG TAB PO ×2 (08:26→17:44)
[2017-12-28] MEDS: INSULIN GLARGINE [LANTus] (100 UNITS/ML) SYG SC (08:27)
[2017-12-28] MEDS: LISINOPRIL 20 MG TAB PO (08:28)
[2017-12-28] MEDS: HEPARIN 5,000 UNIT/0.5 ML VIAL SC ×2 (08:28→20:41)
[2017-12-28] MEDS: CHOLECALCIFEROL 2,000 UNIT CAP PO (08:28)
[2017-12-28] MEDS: FLUCONAZOLE 100 MG TAB PO (08:29)
[2017-12-28] MEDS: SACCHAROMYCES BOULARDII 250 MG CAP PO ×3 (08:29→20:40)
[2017-12-28] MEDS: CLOPIDOGREL 75 MG TAB PO (08:29)
[2017-12-28] MEDS: LINAGLIPTIN 5 MG TABLET PO (08:29)
[2017-12-28] MEDS: SOD CHLORIDE 0.9% 1,000 ML IV (13:15)
[2017-12-29] MEDS: VANCOMYCIN 1.25 GM in SOD CHLORIDE 0.9% 250 ML IVPB ×2 (01:03→12:36)
[2017-12-29] MEDS: ACCU-CHEK XX (02:00)
[2017-12-29] MEDS: LEVOFLOXACIN 500 MG TAB PO (05:34)
[2017-12-29] MEDS: PANTOPRAZOLE 40 MG INJ IV (05:35)
[2017-12-29] MEDS: metroNIDAZOLE 500 MG TAB PO ×3 (05:35→21:57)
[2017-12-29] MEDS: INSULIN ASPART [NOVOLOG] 3 ML PEN SC ×4 (07:40→20:45)
[2017-12-29] MEDS: ASPIRIN 81 MG TAB NGT (09:00)
[2017-12-29] MEDS: SACCHAROMYCES BOULARDII 250 MG CAP PO ×2 (09:00→20:45)
[2017-12-29] MEDS: POLYETHYLENE GLYCOL 17 GM PACKET PO ×2 (09:00→20:45)
[2017-12-29] MEDS: SODIUM HYPOCHLORITE (1/40) 1 APPLIC BTL IRR ×2 (09:00→20:45)
[2017-12-29] MEDS: REPAGLINIDE 1 MG TAB PO ×3 (09:31→17:25)
[2017-12-29] MEDS: metFORMIN 500 MG TAB PO ×2 (09:31→17:25)
[2017-12-29] MEDS: INSULIN GLARGINE [LANTus] (100 UNITS/ML) SYG SC (09:33)
[2017-12-29] MEDS: HEPARIN 5,000 UNIT/0.5 ML VIAL SC ×2 (09:34→20:46)
[2017-12-29] MEDS: FLUCONAZOLE 100 MG TAB PO (09:35)
[2017-12-29] MEDS: LINAGLIPTIN 5 MG TABLET PO (09:36)
[2017-12-29] MEDS: CHOLECALCIFEROL 2,000 UNIT CAP PO (09:36)
[2017-12-29] MEDS: LISINOPRIL 20 MG TAB PO (09:36)
[2017-12-29] MEDS: CLOPIDOGREL 75 MG TAB PO (09:36)
[2017-12-29] MEDS: SOD CHLORIDE 0.9% 1,000 ML IV (12:00)
[2017-12-30] MEDS: VANCOMYCIN 1.25 GM in SOD CHLORIDE 0.9% 250 ML IVPB ×3 (00:57→14:33)
[2017-12-30] MEDS: SOD CHLORIDE 0.9% 1,000 ML IV (00:57)
[2017-12-30] MEDS: ACCU-CHEK XX (01:03)
[2017-12-30] MEDS: PANTOPRAZOLE 40 MG INJ IV (05:49)
[2017-12-30] MEDS: LEVOFLOXACIN 500 MG TAB PO (05:49)
[2017-12-30] MEDS: metroNIDAZOLE 500 MG TAB PO ×3 (05:49→22:23)
[2017-12-30 05:59] LABS: BLOOD UREA NITROGEN 8 mg/dl (7-20)
[2017-12-30 05:59] LABS: CREATININE 0.64 mg/dl (0.61-1.24)
[2017-12-30] MEDS: INSULIN ASPART [NOVOLOG] 3 ML PEN SC ×4 (07:57→20:51)
[2017-12-30] MEDS: LINAGLIPTIN 5 MG TABLET PO (08:03)
[2017-12-30] MEDS: REPAGLINIDE 1 MG TAB PO ×3 (08:03→17:27)
[2017-12-30] MEDS: INSULIN GLARGINE [LANTus] (100 UNITS/ML) SYG SC (08:04)
[2017-12-30] MEDS: metFORMIN 500 MG TAB PO ×2 (08:04→17:27)
[2017-12-30] MEDS: FLUCONAZOLE 100 MG TAB PO (08:16)
[2017-12-30] MEDS: SACCHAROMYCES BOULARDII 250 MG CAP PO ×2 (08:16→20:51)
[2017-12-30] MEDS: POLYETHYLENE GLYCOL 17 GM PACKET PO ×2 (08:16→20:46)
[2017-12-30] MEDS: CLOPIDOGREL 75 MG TAB PO (08:16)
[2017-12-30] MEDS: CHOLECALCIFEROL 2,000 UNIT CAP PO (08:16)
[2017-12-30] MEDS: ASPIRIN 81 MG TAB NGT (08:16)
[2017-12-30] MEDS: LISINOPRIL 20 MG TAB PO (08:19)
[2017-12-30] MEDS: SODIUM HYPOCHLORITE (1/40) 1 APPLIC BTL IRR ×2 (08:21→20:46)
[2017-12-30] MEDS: HEPARIN 5,000 UNIT/0.5 ML VIAL SC ×3 (09:00→20:51)
[2017-12-31] MEDS: VANCOMYCIN 1.25 GM in SOD CHLORIDE 0.9% 250 ML IVPB ×2 (01:34→13:23)
[2017-12-31] MEDS: ACCU-CHEK XX ×2 (01:39→21:56)
[2017-12-31] MEDS: SOD CHLORIDE 0.9% 1,000 ML IV ×2 (03:56→12:24)
[2017-12-31] MEDS: ALTEPLASE (CATHFLO) 2 MG INJ CATHETER (04:51)
[2017-12-31] MEDS: LEVOFLOXACIN 500 MG TAB PO (05:47)
[2017-12-31] MEDS: PANTOPRAZOLE 40 MG INJ IV (05:47)
[2017-12-31] MEDS: metroNIDAZOLE 500 MG TAB PO ×3 (05:47→21:15)
[2017-12-31] MEDS: INSULIN ASPART [NOVOLOG] 3 ML PEN SC ×4 (08:00→21:00)
[2017-12-31] MEDS: REPAGLINIDE 1 MG TAB PO ×3 (08:17→17:35)
[2017-12-31] MEDS: INSULIN GLARGINE [LANTus] (100 UNITS/ML) SYG SC (08:18)
[2017-12-31] MEDS: metFORMIN 500 MG TAB PO ×2 (08:19→17:57)
[2017-12-31] MEDS: LINAGLIPTIN 5 MG TABLET PO (08:19)
[2017-12-31] MEDS: SACCHAROMYCES BOULARDII 250 MG CAP PO ×2 (09:00→21:00)
[2017-12-31] MEDS: SODIUM HYPOCHLORITE (1/40) 1 APPLIC BTL IRR ×2 (09:00→21:00)
[2017-12-31] MEDS: ASPIRIN 81 MG TAB NGT (09:00)
[2017-12-31] MEDS: POLYETHYLENE GLYCOL 17 GM PACKET PO ×2 (09:00→21:00)
[2017-12-31] MEDS: LISINOPRIL 20 MG TAB PO (09:20)
[2017-12-31] MEDS: CLOPIDOGREL 75 MG TAB PO (09:20)
[2017-12-31] MEDS: CHOLECALCIFEROL 2,000 UNIT CAP PO (09:20)
[2017-12-31] MEDS: FLUCONAZOLE 100 MG TAB PO (09:20)
[2017-12-31] MEDS: HEPARIN 5,000 UNIT/0.5 ML VIAL SC ×2 (09:23→21:17)
[2018-01-01 02:24] LABS: VANCOMYCIN,TROUGH 10.8 ug/ml (10.0-20.0)
[2018-01-01] MEDS: VANCOMYCIN 1.25 GM in SOD CHLORIDE 0.9% 250 ML IVPB (03:14)
[2018-01-01] MEDS: PANTOPRAZOLE 40 MG INJ IV (05:17)
[2018-01-01] MEDS: metroNIDAZOLE 500 MG TAB PO ×3 (05:17→21:56)
[2018-01-01] MEDS: LEVOFLOXACIN 500 MG TAB PO (05:17)
[2018-01-01] MEDS: INSULIN ASPART [NOVOLOG] 3 ML PEN SC ×4 (08:00→20:22)
[2018-01-01] MEDS: INSULIN GLARGINE [LANTus] (100 UNITS/ML) SYG SC (08:27)
[2018-01-01] MEDS: HEPARIN 5,000 UNIT/0.5 ML VIAL SC ×2 (08:27→21:58)
[2018-01-01] MEDS: SACCHAROMYCES BOULARDII 250 MG CAP PO ×2 (08:28→21:55)
[2018-01-01] MEDS: FLUCONAZOLE 100 MG TAB PO (08:28)
[2018-01-01] MEDS: POLYETHYLENE GLYCOL 17 GM PACKET PO ×3 (08:28→21:00)
[2018-01-01] MEDS: CHOLECALCIFEROL 2,000 UNIT CAP PO (08:28)
[2018-01-01] MEDS: CLOPIDOGREL 75 MG TAB PO (08:28)
[2018-01-01] MEDS: REPAGLINIDE 1 MG TAB PO ×3 (08:28→17:39)
[2018-01-01] MEDS: LINAGLIPTIN 5 MG TABLET PO (08:28)
[2018-01-01] MEDS: metFORMIN 500 MG TAB PO ×2 (08:29→17:39)
[2018-01-01] MEDS: ASPIRIN 81 MG TAB NGT ×2 (08:29→08:46)
[2018-01-01] MEDS: LISINOPRIL 20 MG TAB PO (08:29)
[2018-01-01] MEDS: SODIUM HYPOCHLORITE (1/40) 1 APPLIC BTL IRR ×2 (08:30→20:21)
[2018-01-01] MEDS: VANCOMYCIN 1.75 GM in SOD CHLORIDE 0.9% 500 ML IVPB (13:00)
[2018-01-01] MEDS ORDERED: VANCOMYCIN 1.5 GM in SOD CHLORIDE 0.9% 250 ML IVPB (15:00)
[2018-01-01] MEDS: SOD CHLORIDE 0.9% 1,000 ML IV (18:53)
[2018-01-02] MEDS: VANCOMYCIN 1.75 GM in SOD CHLORIDE 0.9% 500 ML IVPB ×2 (01:42→13:23)
[2018-01-02] MEDS: ACCU-CHEK XX (01:45)
[2018-01-02] MEDS: PANTOPRAZOLE 40 MG INJ IV (06:28)
[2018-01-02] MEDS: LEVOFLOXACIN 500 MG TAB PO (06:28)
[2018-01-02] MEDS: metroNIDAZOLE 500 MG TAB PO ×2 (06:28→13:23)
[2018-01-02] MEDS: INSULIN ASPART [NOVOLOG] 3 ML PEN SC ×3 (08:00→17:23)
[2018-01-02] MEDS: CHOLECALCIFEROL 2,000 UNIT CAP PO (08:09)
[2018-01-02] MEDS: REPAGLINIDE 1 MG TAB PO ×3 (08:09→17:23)
[2018-01-02] MEDS: FLUCONAZOLE 100 MG TAB PO (08:09)
[2018-01-02] MEDS: metFORMIN 500 MG TAB PO ×2 (08:09→17:23)
[2018-01-02] MEDS: CLOPIDOGREL 75 MG TAB PO (08:09)
[2018-01-02] MEDS: ASPIRIN 81 MG TAB NGT ×2 (08:09→08:18)
[2018-01-02] MEDS: LINAGLIPTIN 5 MG TABLET PO (08:10)
[2018-01-02] MEDS: HEPARIN 5,000 UNIT/0.5 ML VIAL SC (08:10)
[2018-01-02] MEDS: SACCHAROMYCES BOULARDII 250 MG CAP PO ×2 (08:10→08:18)
[2018-01-02] MEDS: SODIUM HYPOCHLORITE (1/40) 1 APPLIC BTL IRR (08:11)
[2018-01-02] MEDS: POLYETHYLENE GLYCOL 17 GM PACKET PO (08:11)
[2018-01-02] MEDS: LISINOPRIL 20 MG TAB PO (08:14)
[2018-01-02] MEDS: SOD CHLORIDE 0.9% 1,000 ML IV (15:29)
== END 2018-01-02 18:34 | disposition home health service (06) | DRG 854 ==
LOC: E/R 22:08 → PP2 11-17 00:48
PROC: 0Y6Q0Z3 Detachment at Left 1st Toe, Low, Open Approach (ICD-10-PCS; 2017-11-18 16:00)
PROC: 0JDR0ZZ Extraction of Left Foot Subcutaneous Tissue and Fascia, Open Approach (ICD-10-PCS; 2017-11-18 16:00)
PROC: 0Y9N0ZZ Drainage of Left Foot, Open Approach (ICD-10-PCS; 2017-11-18 16:00)
PROC: 02HV33Z Insertion of Infusion Device into Superior Vena Cava, Percutaneous Approach (ICD-10-PCS; principal; 2017-11-18 16:15)
PROC: 0Y6N0Z9 Detachment at Left Foot, Partial 1st Ray, Open Approach (ICD-10-PCS; 2017-11-18 16:15)
PROC: 0Y6N0ZB Detachment at Left Foot, Partial 2nd Ray, Open Approach (ICD-10-PCS; 2017-11-18 16:15)
PROC: 0Y6N0ZC Detachment at Left Foot, Partial 3rd Ray, Open Approach (ICD-10-PCS; 2017-11-18 16:15)
PROC: 0Y6N0ZD Detachment at Left Foot, Partial 4th Ray, Open Approach (ICD-10-PCS; 2017-11-18 16:15)
PROC: 0Y6N0ZF Detachment at Left Foot, Partial 5th Ray, Open Approach (ICD-10-PCS; 2017-11-18 16:15)
PROC: 047Q3ZZ Dilation of Left Anterior Tibial Artery, Percutaneous Approach (ICD-10-PCS; 2017-11-18 16:15)
PROC: 04CQ3ZZ Extirpation of Matter from Left Anterior Tibial Artery, Percutaneous Approach (ICD-10-PCS; 2017-11-18 16:15)
PROC: 0LBW0ZZ Excision of Left Foot Tendon, Open Approach (ICD-10-PCS; 2017-11-18 16:15)
PROC: 0HRNX74 Replacement of Left Foot Skin with Autologous Tissue Substitute, Partial Thickness, External Approach (ICD-10-PCS; 2017-11-18 16:15)
PROC: 0QBP0ZZ Excision of Left Metatarsal, Open Approach (ICD-10-PCS; 2017-11-18 16:15)
PROC: B410YZZ Fluoroscopy of Abdominal Aorta using Other Contrast (ICD-10-PCS; 2017-11-18 16:15)
PROC: B41GYZZ Fluoroscopy of Left Lower Extremity Arteries using Other Contrast (ICD-10-PCS; 2017-11-18 16:15)
PROC: 0Y9N0ZZ Drainage of Left Foot, Open Approach (ICD-10-PCS; 2017-11-18 16:15)
PROC: 0HBJXZZ Excision of Left Upper Leg Skin, External Approach (ICD-10-PCS; 2017-11-18 16:15)
DX: A41.9 Sepsis, unspecified organism (principal); L03.116 Cellulitis of left lower limb; L02.612 Cutaneous abscess of left foot; M86.172 Other acute osteomyelitis, left ankle and foot; E11.52 Type 2 diabetes mellitus with diabetic peripheral angiopathy with gangrene; I70.262 Atherosclerosis of native arteries of extremities with gangrene, left leg; E11.65 Type 2 diabetes mellitus with hyperglycemia; E11.621 Type 2 diabetes mellitus with foot ulcer; L97.529 Non-pressure chronic ulcer of other part of left foot with unspecified severity; E66.9 Obesity, unspecified; E11.42 Type 2 diabetes mellitus with diabetic polyneuropathy; E11.51 Type 2 diabetes mellitus with diabetic peripheral angiopathy without gangrene; E11.69 Type 2 diabetes mellitus with other specified complication; D64.9 Anemia, unspecified; I10 Essential (primary) hypertension; S91.132A Puncture wound without foreign body of left great toe without damage to nail, initial encounter; W45.0XXA Nail entering through skin, initial encounter; Z68.34 Body mass index [BMI] 34.0-34.9, adult
CPT/HCPCS: 36415; 36569; 71045; 73630-LT; 75635; 75710; 76937; 80048; 80053; 80061; 80202; 82306; 82565; 82652; 82728; 82962; 83036; 83540; 83605; 83690; 83735; 84100; 84443; 84484; 84520; 85025; 85610; 85651; 85730; 86140; 86803; 87040; 87070; 87075; 87102; 87116; 87340; 88305; 88307; 88311; 93005; 93922; 93970; 97110; 97116; 97161; 97530; 99285-25; G0378

== ENCOUNTER 2018-01-05 13:47 | Emergency (ER) | payer MEDICAID | END 2018-01-05 17:20 | disposition home or self-care (01) | LOC: FTE 17:20 | DX: Z00.00 Encounter for general adult medical examination without abnormal findings (principal); E11.9 Type 2 diabetes mellitus without complications; Z79.82 Long term (current) use of aspirin; Z79.84 Long term (current) use of oral hypoglycemic drugs | CPT/HCPCS: 99282; Z7502 ==